=== PATIENT | male | born 1945 | race Caucasian/White ===

== ENCOUNTER 2016-12-22 03:17 | Emergency (ER) | payer OTHER ==
[~2016-12-22] VITALS: Ht 167.6 cm; Wt 56.7 kg
[~2016-12-22 03:17] MED LIST: BUDE0.5A NEB; CIPR500T94 PO; DOCU-27 PO; FLUT9.9S NS; HYDR-2678 PO; IPRA3AMP NEB; METH4TAB7 PO; MONT10TA6 PO; OMEP20CA9 PO; PRED-220 PO; PROAIR HFA8.5 GM IH; TRAM50TA PO
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
[2016-12-22 03:50] VITALS: BP 168/83
[2016-12-22] MEDS ORDERED: HYDR-971 PO (03:54)
[2016-12-22] MEDS ORDERED: PROAIR HFA8.5 GM INH (03:54)
[2016-12-22] MEDS ORDERED: IBUPROFEN 800 MG TABLET. PO ONE (04:00)
[2016-12-22] MEDS ORDERED: HYDROcodone/APAP 5/325MG 1 TAB TABLET PO ONE (04:00)
--- NOTE | 2016-12-22 07:37 | RAD ---
Indication right rib pain. A single view of the chest was obtained and is compared to an examination 10/13/2016. Multiple films targeted to right ribs were also obtained. There are chronic changes in the chest compatible with emphysema and/or fibrosis. There is no congestive heart failure focal infiltrate significant pleural fluid collection or pneumothorax. Pulmonary vasculature is normal. Films targeted to right ribs appear unremarkable. IMPRESSION: No acute finding in the chest. Normal plain films right ribs
--- NOTE | 2016-12-22 07:40 | RAD ---
Indication shoulder pain for several weeks. 2 AP views of the left shoulder and Y view were obtained. No bony abnormality is seen
== END 2016-12-22 04:30 | disposition home or self-care (01) ==
LOC: ER 03:17
DX: M94.0 Chondrocostal junction syndrome [Tietze] (principal); S46.912A Strain of unspecified muscle, fascia and tendon at shoulder and upper arm level, left arm, initial encounter; G89.29 Other chronic pain; G20 Parkinson's disease; J43.9 Emphysema, unspecified; Z98.890 Other specified postprocedural states; X58.XXXA Exposure to other specified factors, initial encounter; Y93.89 Activity, other specified; Y99.8 Other external cause status; Y92.89 Other specified places as the place of occurrence of the external cause
CPT/HCPCS: 71101; 73030; 99284

== ENCOUNTER 2017-01-06 15:26 | Inpatient (IN) | payer OTHER ==
[~2017-01-06] VITALS: Ht 165.1 cm; Wt 49.5 kg
[~2017-01-06 15:26] MED LIST changes: +HYDR-971 PO; +PROAIR HFA8.5 GM INH
[2017-01-06] MEDS ORDERED: methylPREDNISolone SOD SUCC PF 125 MG/2 ML VIAL. IV ONE (15:30)
[2017-01-06] MEDS ORDERED: IPRATRPIUM/ALBUTEROL 0.5/2.5MG 3 ML NEBU. NEB ONE ×2 (15:30)
[2017-01-06 15:51] LABS: BASO # 0.1 x10^3/uL (0.0-0.2); BASO % 1 % (0-3); EOS % 0 % (0-3); HEMATOCRIT 37.3 % (39.0-53.0); HEMOGLOBIN 12.4 g/dL (13.0-17.5); LYMPH # 1.2 x10^3/uL (1.0-4.8); LYMPH % 10 % (24-48); MEAN CORPUSCULAR HEMOGLOBIN 28 pg (25-35); MEAN CORPUSCULAR HGB CONC 33 g/dL (31-37); MEAN CORPUSCULAR VOLUME 84 fL (79-100); MONO % 5 % (0-9); NEUT % 85 % (31-73); PLATELET COUNT 562 x10^3/uL (140-400); RED BLOOD COUNT 4.44 x10^6/uL (4.30-5.70); WHITE BLOOD COUNT 12.6 x10^3/uL (4.0-11.0)
--- NOTE | 2017-01-06 16:01 | EKG ---
[facility] [address] [place] [address] Test Date: 2017-01-06 Test Time: 15:32:19 Pat Name: JUAN JAUREGUI Department: Room: Gender: M Flight Line Mechanic: : 1945 Requested By: CHELSEA VALENTINO Order Number: [id number] Reading MD: Shon Rosario Measurements Intervals [place] Rate: 66 P: 74 HI: 172 QRS: 46 QRSD: 104 T: 67 QT: 420 QTc: 442 Interpretive Statements SINUS RHYTHM Electronically Signed On 01-11-2017 14:01:33 CDT by Shon Rosario
[2017-01-06 16:07] LABS: CALCIUM 9.1 mg/dL (8.5-10.1); CREATININE 0.9 mg/dL (0.7-1.3); GFR 83.4; POTASSIUM 3.9 mmol/L (3.5-5.1)
[2017-01-06 16:13] LABS: ALBUMIN/GLOBULIN RATIO 0.8 (1.0-1.7); TOTAL BILIRUBIN 0.5 mg/dL (0.2-1.0); TOTAL PROTEIN 6.7 g/dL (6.4-8.2)
--- NOTE | 2017-01-06 16:15 | RAD ---
Chest, 2 views, 01/06/2017: History: Cough, shortness of breath Comparison is made to a study from 12/22/2016. There is emphysema with hyperexpansion the lungs. The heart size is normal. There is calcific plaquing of the aorta. There are scattered parenchymal scars. There is a new small parenchymal opacity laterally in the right lower chest suggesting a focus of atelectasis or pneumonia. No pleural fluid is seen. The bony structures are demineralized. Several thoracic vertebral compression fractures are again noted. IMPRESSION: 1. Emphysema with parenchymal scarring. 2. Minimal right basilar atelectasis/infiltrate.
--- NOTE | 2017-01-06 16:55 | PHYS DOC ---
Past Medical History Past Medical History: Asthma Additional Past Medical Histor: emphysema, chronic back pain, PAD, Parkinsons Past Surgical History: No Surgical History Additional Past Surgical Histo: L shoulder Alcohol Use: None Drug Use: None Adult General Chief Complaint Chief Complaint: SHORTNESS OF BREATH HPI HPI Patient is a 71 year old male with a history of COPD brought by EMS from Dr. Sykes's office with respiratory distress. I was called by the nurse practitioner at Dr. Sykes's office. The patient presented today with the complaint of short of air, cough for 15 days, they found him to have sats in the 70s on room air. They put him on 2 L, sats came up to the high 70s, turned it up to 4 L, his sat came up to the 90s. They gave him a neb treatment at the office and called EMS to transport the patient. The patient tells me he does not have home oxygen. He does have a nebulizer at home, that he has not had albuterol for it for at least a year. He cannot afford it. The patient does smoke. He has a history of COPD. He has a history of pneumonia. PCP Dr. Sykes Review of Systems Review of Systems Constitutional: Denies fever or chills [] Eyes: Denies change in visual acuity, redness, or eye pain [] HENT: Denies nasal congestion or sore throat [] Respiratory: As in history of present illness Cardiovascular: Denies chest pain GI: Denies abdominal pain, nausea, vomiting, bloody stools or diarrhea [] : Denies dysuria or hematuria [] Musculoskeletal: He has chronic back pain and takes tramadol for that. Integument: Denies rash or skin lesions [] Neurologic: Denies headache, focal weakness or sensory changes [] Current Medications Current Medications Current Medications Medications (Trade) Dose Ordered Sig/[facility]oc[facility] Start Time Stop Time Status Last Admin Dose Admin Albuterol/ Ipratropium (Duoneb) 3 ml 1X ONCE 01/06/17 15:30 01/06/17 15:36 DC 01/06/17 16:17 3 ML Methylprednisolone Sodium Succinate (SOLU-Medrol 125MG VIAL) 60 mg 1X ONCE 01/06/17 15:30 01/06/17 15:36 DC 01/06/17 16:00 60 MG Allergies Allergies Allergies Coded Allergies Type Severity Reaction Last Updated Verified No Known Drug Allergies 11/07/14 No Physical Exam Physical Exam Constitutional: Cachectic, unkempt appearing 71-year-old man who is alert and mentating normally and does not appear dyspneic, pulse ox on room air mid 90s on arrival HENT: Normocephalic, atraumatic, bilateral external ears normal, nose normal. [ ] Eyes: conjunctiva normal, no discharge. [] Neck: Normal range of motion, no stridor. [] Cardiovascular:Heart rate regular rhythm, no murmur [] Lungs & Thorax: Breath sounds present bilaterally, diminished throughout, prolonged expiratory phase throughout, scattered expiratory wheezes. Decreased breath sounds in the left base posteriorly. No rhonchi or consolidative changes. Abdomen: Bowel sounds normal, soft, no tenderness, no masses, no pulsatile masses. [] Skin: Warm, dry, no erythema, no rash. [] Extremities: No tenderness, no cyanosis, no clubbing, ROM intact, no edema. [] Neurologic: Alert and oriented X 3, normal motor function, normal sensory function, no focal deficits noted. [] Current Patient Data Vital Signs Vital Signs Date Time Temp Pulse Resp B/P (MAP) Pulse Ox O2 Delivery O2 Flow Rate FiO2 01/06/17 16:26 69 30 172/73 (106) 94 Room Air 01/06/17 15:29 97.6 97.6 Lab Values Laboratory Tests Test 01/06/17 15:40 White Blood Count 12.6 x10^3/uL (4.0-11.0) H Red Blood Count 4.44 x10^6/uL (4.30-5.70) Hemoglobin 12.4 g/dL (13.0-17.5) L Hematocrit 37.3 % (39.0-53.0) L Mean Corpuscular Volume 84 fL (79-100) Mean Corpuscular Hemoglobin 28 pg (25-35) Mean Corpuscular Hemoglobin Concent 33 g/dL (31-37) Red Cell Distribution Width 17.0 % (11.5-14.5) H Platelet Count 562 x10^3/uL (140-400) H Neutrophils (%) (Auto) 85 % (31-73) H Lymphocytes (%) (Auto) 10 % (24-48) L Monocytes (%) (Auto) 5 % (0-9) Eosinophils (%) (Auto) 0 % (0-3) Basophils (%) (Auto) 1 % (0-3) Neutrophils # (Auto) 10.7 x10^3uL (1.8-7.7) H Lymphocytes # (Auto) 1.2 x10^3/uL (1.0-4.8) Monocytes # (Auto) 0.6 x10^3/uL (0.0-1.1) Eosinophils # (Auto) 0.0 x10^3/uL (0.0-0.7) Basophils # (Auto) 0.1 x10^3/uL (0.0-0.2) Sodium Level 140 mmol/L (136-145) Potassium Level 3.9 mmol/L (3.5-5.1) Chloride Level 104 mmol/L (98-107) Carbon Dioxide Level 32 mmol/L (21-32) Anion Gap 4 (6-14) L Blood Urea Nitrogen 13 mg/dL (8-26) Creatinine 0.9 mg/dL (0.7-1.3) Estimated GFR (Cockcroft-Gault) 83.4 BUN/Creatinine Ratio 14 (6-20) Glucose Level 127 mg/dL (70-99) H Calcium Level 9.1 mg/dL (8.5-10.1) Total Bilirubin 0.5 mg/dL (0.2-1.0) Aspartate Amino Transferase (AST) 19 U/L (15-37) Alanine Aminotransferase (ALT) 18 U/L (16-63) Alkaline Phosphatase 74 U/L (46-116) Troponin I Quantitative < 0.017 ng/mL (0.000-0.055) BA-Gvw-Y-Type Natriuretic Peptide 547 pg/mL (0-124) H Total Protein 6.7 g/dL (6.4-8.2) Albumin 3.0 g/dL (3.4-5.0) L Albumin/Globulin Ratio 0.8 (1.0-1.7) L Laboratory Tests 01/06/17 15:40 Laboratory Tests 01/06/17 15:40 EKG EKG 12-lead EKG read by me. Sinus rhythm. Heart rate 66. There are no acute ST or T wave changes indicative of ischemia or infarction. No STEMI. 1532 [] Radiology/Procedures Radiology/Procedures Two-view chest x-ray read by the radiologist. Emphysema with parenchymal scarring. Minimal right basilar atelectasis or infiltrate. [] Course & Med Decision Making Course & Med Decision Making Pertinent Labs and Imaging studies reviewed. (See chart for details) 71-year-old male brought by EMS from Dr. Sykes's office after he was found to be hypoxic when he visited the office with shortness of air. Patient had a neb treatment prior to transport and was given a second neb treatment here. He was also given IV steroids. 1640 Rechecked patient. Pulse ox on room air 93% at rest, goes down to 92% when I talked to him and he talks. He does not appear overtly dyspneic. He complains of this time that he is hungry and also complains that his legs are twitching and he needs a dose of this pain medication. He did not know what that is but review of records reveals it appears to be tramadol. I discussed with the patient that I believe he should be hospitalized for frequent nebulized albuterol treatments, likely would benefit from IV steroids and IV antibiotics. Patient is agreeable to that plan. I discussed the case with Dr. Sykes, PCP, who will admit the patient. I wrote bridge orders. [] Dragon Disclaimer Dragon Disclaimer This electronic medical record was generated, in whole or in part, using a voice recognition dictation system. Departure Departure Impression: Primary Impression: COPD exacerbation Additional Impression: Pneumonia Disposition: ADMITTED INPATIENT Admitting Physician: Madeline Sykes Condition: STABLE Referrals: MADELINE SYKES MD (PCP) Problem Qualifiers CHELSEA VALENTINO MD January 06, 2017 16:55
[2017-01-06] MEDS ORDERED: traMADol 50 MG TABLET PO ONE (17:00)
--- NOTE | 2017-01-06 17:28 | ACF ---
Admission Forms Criteria COPD Clinical Indications for Admission to Inpatient Care (Place 'X' for any and all applicable criteria): Admission is indicated for ANY ONE of the following (1)(2)(3): [X]I. Acute exacerbation by high-risk comorbidity (e.g., pneumonia, dysrhythmia, heart failure, pleural effusion, pneumothorax) or severe underlying COPD (e.g., steroid dependent) [ ]II. Inpatient admission required rather than observation care (see Chronic Obstructive Pulmonary Disease: Observation Care) because of ANY ONE of the following: [ ]a) New or pre-existing signs or symptoms of COPD (eg, dyspnea or Tachypnea at rest or with minimal activity) that persist despite outpatient and observation care treatment [ ]b) New-onset hypoxemia (room air SaO2 less than 90%, PO2 less than 60 mm Hg (8.0 kPa)) that persists despite outpatient and observation care treatment [ ]c) Worsening of pre-existing hypoxemia (eg, new or increased requirement for supplemental oxygen to maintain oxygenation at baseline level) that persists despite outpatient and observation care treatment, with oxygen treatment needs performable only in acute inpatient setting [ ]d) Hypercarbia (PCO2 greater than 40 mm Hg (5.3 kPa))-induced respiratory acidosis (pH less than 7.35) that persists despite outpatient and observation care treatment [ ]e) Supplemental oxygen or respiratory treatments for over 24 hours that are performable only in acute inpatient setting [ ]f) Chest tube placement with active evacuation (e.g., suction, drainage) (5) [ ]g) Other condition, treatment or monitoring requiring inpatient admission [ ]III. Planned invasive surgical or diagnostic procedures requiring acute- care hospitalization [ ]IV. Acute respiratory failure (e.g., uncompensated hypercarbia, severe hypoxemia) [ ]V. Severe comorbid condition (e.g., severe steroid myopathy, acute vertebral fracture) that has acutely worsened pulmonary function [ ]. Confusion state, lethargy, obtundation, stupor or coma Extended stay beyond goal length of stay may be needed for (31)(32): [ ]a ) Respiratory Failure. [ ]b) Severe or persisting hypoxemia or hypercarbia [ ]c) Severe or persistent dyspnea [ ]d) Comorbidities (e.g. chronic heart failure, atrial fibrillation with rapid response, pneumonia) [ ]e) Malnutrition The original [facility] content created by [facility] (formerly [facility]) has been revised. The portions of the content which have been revised are identified through the use of italic text or in bold, and [facility] has neither reviewed nor approved the modified material. All other unmodified content is copyright [facility]. Please see references footnoted in the original [facility] edition 2016 Admission Criteria Met?: Yes NANCY AGUILAR January 06, 2017 17:28
[2017-01-06 19:00] VITALS: BP 139/75
[2017-01-06] MEDS: IPRATRPIUM/ALBUTEROL 0.5/2.5MG 3 ML NEBU. NEB SCH (20:55)
[2017-01-06] MEDS: traMADol 50 MG TABLET PO PRN (21:26)
[2017-01-06 22:48] VITALS: BP 117/66
[2017-01-07] MEDS: traMADol 50 MG TABLET PO PRN ×2 (03:45→20:37)
[2017-01-07 05:41] LABS: HEMATOCRIT 33.1 % (39.0-53.0); HEMOGLOBIN 11.2 g/dL (13.0-17.5); RED BLOOD COUNT 4.02 x10^6/uL (4.30-5.70); RED CELL DISTRIBUTION WIDTH 16.2 % (11.5-14.5)
[2017-01-07 05:55] LABS: ALBUMIN 2.8 g/dL (3.4-5.0); ALBUMIN/GLOBULIN RATIO 0.9 (1.0-1.7); CREATININE 0.9 mg/dL (0.7-1.3); GFR 83.4; POTASSIUM 4.6 mmol/L (3.5-5.1); TOTAL BILIRUBIN 0.3 mg/dL (0.2-1.0); TOTAL PROTEIN 5.8 g/dL (6.4-8.2)
[2017-01-07 07:00] VITALS: BP 133/79
[2017-01-07] MEDS: IPRATRPIUM/ALBUTEROL 0.5/2.5MG 3 ML NEBU. NEB SCH ×5 (07:39→19:31)
[2017-01-07] MEDS ORDERED: ALBUTEROL SULFATE 2.5 MG/3 ML NEBU. NEB PRN (07:45)
--- NOTE | 2017-01-07 08:09 | PDOC1 ---
ROBBI LINCOLN CLINICAL CARE MANAGER 01/07/17 0809: HISTORY AND PHYSICAL Chief Complaint Chief Complaint This 71 year old male has been admitted with a chief complaint of shortness of breath. He presented to the office yesterday with cough productive yellow sputum for approximately 15 days. He noted progressive worsening shortness of breath without fever or chills. He also noted wheezing intermittently. During VS check in his Sat was noted to be 70%, O2 2L NC was applied. His Sat improved to 73%. A Duoneb treatment was administered and EMS was called. At the time of transport his Sat had improved to 98-99% and his shortness of breath had slightly improved. A CXR in ED revealed R LLL infiltrate and his WBC was 12.6. He was given Solumedrol 60mg IV, duoneb treatment x2, and Levaquin 750 IV x 1. He is admitted for further evaluation and treatment. . Problem List Problems Medical Problems: (1) COPD exacerbation Status: Acute (2) Pneumonia Status: Acute Past Medical History Cardiovascular: Other (PAD) Pulmonary: COPD (emphysema ), Other Heme/Onc: Anemia NOS, B12 deficiency Musculoskeletal: low back pain (LBP with radicular pain RLE chronic ), Other ( cervical radiculopathy ) Endocrine: Other (Vitamin D def) Past Surgical History PSH L shoulder surgery Past Family History Family History: Other (MOther TB ) Past Social History PSH lives alone. + tobacco, negative ETOH or illicit drug use. Review of Symptoms Review of Symptoms A 14 point ROS was completed with the following noted as positive: per HPI Other systems reviewed and negative. Medications Medications reviewed and reconciled for admission Allergy Allergies Coded Allergies Type Severity Reaction Last Updated Verified No Known Drug Allergies 11/07/14 No Physical Exam Physical Exam General appearance - alert,well appearing, and in no distress and oriented to person, place, and time Mental Status - alert, oriented to person, place, and time, affect appropriate to mood Head - normal Chest - clear to auscultation, no wheezes, rales or rhonchi, symmetric air entry Heart - S1 and S2 normal Abdomen - soft, nontender, nondistended, no masses or organomegaly Neurological - alert and oriented Musculoskeletal - no muscular tenderness noted Extremities - no pedal edema Skin - warm and dry VTE Prophylaxis Ordered VTE Prophylaxis Devices: No VTE Pharmacological Prophylaxi: No Assessment Labs Laboratory Tests Test 01/06/17 15:40 01/07/17 05:15 White Blood Count 12.6 x10^3/uL (4.0-11.0) 12.0 x10^3/uL (4.0-11.0) Red Blood Count 4.44 x10^6/uL (4.30-5.70) 4.02 x10^6/uL (4.30-5.70) Hemoglobin 12.4 g/dL (13.0-17.5) 11.2 g/dL (13.0-17.5) Hematocrit 37.3 % (39.0-53.0) 33.1 % (39.0-53.0) Mean Corpuscular Volume 84 fL (79-100) 82 fL (79-100) Mean Corpuscular Hemoglobin 28 pg (25-35) 28 pg (25-35) Mean Corpuscular Hemoglobin Concent 33 g/dL (31-37) 34 g/dL (31-37) Red Cell Distribution Width 17.0 % (11.5-14.5) 16.2 % (11.5-14.5) Platelet Count 562 x10^3/uL (140-400) 541 x10^3/uL (140-400) Neutrophils (%) (Auto) 85 % (31-73) Lymphocytes (%) (Auto) 10 % (24-48) Monocytes (%) (Auto) 5 % (0-9) Eosinophils (%) (Auto) 0 % (0-3) Basophils (%) (Auto) 1 % (0-3) Neutrophils # (Auto) 10.7 x10^3uL (1.8-7.7) Lymphocytes # (Auto) 1.2 x10^3/uL (1.0-4.8) Monocytes # (Auto) 0.6 x10^3/uL (0.0-1.1) Eosinophils # (Auto) 0.0 x10^3/uL (0.0-0.7) Basophils # (Auto) 0.1 x10^3/uL (0.0-0.2) Sodium Level 140 mmol/L (136-145) 138 mmol/L (136-145) Potassium Level 3.9 mmol/L (3.5-5.1) 4.6 mmol/L (3.5-5.1) Chloride Level 104 mmol/L (98-107) 102 mmol/L (98-107) Carbon Dioxide Level 32 mmol/L (21-32) 29 mmol/L (21-32) Anion Gap 4 (6-14) 7 (6-14) Blood Urea Nitrogen 13 mg/dL (8-26) 19 mg/dL (8-26) Creatinine 0.9 mg/dL (0.7-1.3) 0.9 mg/dL (0.7-1.3) Estimated GFR (Cockcroft-Gault) 83.4 83.4 BUN/Creatinine Ratio 14 (6-20) 21 (6-20) Glucose Level 127 mg/dL (70-99) 106 mg/dL (70-99) Calcium Level 9.1 mg/dL (8.5-10.1) 9.0 mg/dL (8.5-10.1) Total Bilirubin 0.5 mg/dL (0.2-1.0) 0.3 mg/dL (0.2-1.0) Aspartate Amino Transf (AST/SGOT) 19 U/L (15-37) 15 U/L (15-37) Alanine Aminotransferase (ALT/SGPT) 18 U/L (16-63) 17 U/L (16-63) Alkaline Phosphatase 74 U/L (46-116) 73 U/L (46-116) Troponin I Quantitative < 0.017 ng/mL (0.000-0.055) EY-Ifx-O-Type Natriuretic Peptide 547 pg/mL (0-124) Total Protein 6.7 g/dL (6.4-8.2) 5.8 g/dL (6.4-8.2) Albumin 3.0 g/dL (3.4-5.0) 2.8 g/dL (3.4-5.0) Albumin/Globulin Ratio 0.8 (1.0-1.7) 0.9 (1.0-1.7) Laboratory Tests Test 01/06/17 15:40 01/07/17 05:15 White Blood Count 12.6 x10^3/uL (4.0-11.0) 12.0 x10^3/uL (4.0-11.0) Red Blood Count 4.44 x10^6/uL (4.30-5.70) 4.02 x10^6/uL (4.30-5.70) Hemoglobin 12.4 g/dL (13.0-17.5) 11.2 g/dL (13.0-17.5) Hematocrit 37.3 % (39.0-53.0) 33.1 % (39.0-53.0) Mean Corpuscular Volume 84 fL (79-100) 82 fL (79-100) Mean Corpuscular Hemoglobin 28 pg (25-35) 28 pg (25-35) Mean Corpuscular Hemoglobin Concent 33 g/dL (31-37) 34 g/dL (31-37) Red Cell Distribution Width 17.0 % (11.5-14.5) 16.2 % (11.5-14.5) Platelet Count 562 x10^3/uL (140-400) 541 x10^3/uL (140-400) Neutrophils (%) (Auto) 85 % (31-73) Lymphocytes (%) (Auto) 10 % (24-48) Monocytes (%) (Auto) 5 % (0-9) Eosinophils (%) (Auto) 0 % (0-3) Basophils (%) (Auto) 1 % (0-3) Neutrophils # (Auto) 10.7 x10^3uL (1.8-7.7) Lymphocytes # (Auto) 1.2 x10^3/uL (1.0-4.8) Monocytes # (Auto) 0.6 x10^3/uL (0.0-1.1) Eosinophils # (Auto) 0.0 x10^3/uL (0.0-0.7) Basophils # (Auto) 0.1 x10^3/uL (0.0-0.2) Sodium Level 140 mmol/L (136-145) 138 mmol/L (136-145) Potassium Level 3.9 mmol/L (3.5-5.1) 4.6 mmol/L (3.5-5.1) Chloride Level 104 mmol/L (98-107) 102 mmol/L (98-107) Carbon Dioxide Level 32 mmol/L (21-32) 29 mmol/L (21-32) Anion Gap 4 (6-14) 7 (6-14) Blood Urea Nitrogen 13 mg/dL (8-26) 19 mg/dL (8-26) Creatinine 0.9 mg/dL (0.7-1.3) 0.9 mg/dL (0.7-1.3) Estimated GFR (Cockcroft-Gault) 83.4 83.4 BUN/Creatinine Ratio 14 (6-20) 21 (6-20) Glucose Level 127 mg/dL (70-99) 106 mg/dL (70-99) Calcium Level 9.1 mg/dL (8.5-10.1) 9.0 mg/dL (8.5-10.1) Total Bilirubin 0.5 mg/dL (0.2-1.0) 0.3 mg/dL (0.2-1.0) Aspartate Amino Transf (AST/SGOT) 19 U/L (15-37) 15 U/L (15-37) Alanine Aminotransferase (ALT/SGPT) 18 U/L (16-63) 17 U/L (16-63) Alkaline Phosphatase 74 U/L (46-116) 73 U/L (46-116) Troponin I Quantitative < 0.017 ng/mL (0.000-0.055) VH-Bgm-H-Type Natriuretic Peptide 547 pg/mL (0-124) Total Protein 6.7 g/dL (6.4-8.2) 5.8 g/dL (6.4-8.2) Albumin 3.0 g/dL (3.4-5.0) 2.8 g/dL (3.4-5.0) Albumin/Globulin Ratio 0.8 (1.0-1.7) 0.9 (1.0-1.7) Plan Plan IMPRESSION: 1. acute hypoxic respiratory failure 2. pneumonia RLL suspect grm neg grm + SIRS, not sepsis 3. AECOPD 4. wound R knee painful 5. pulmonary emphysema 6. moderate chronic PCL malnutrition 7. chronic low back pain with radicular pain RLE outpatient chronic pain management 8. cervical radiculopathy outpatient chronic pain management PLAN: respiratory failure/pneumonia/AECOPD Levaquin 750mbg IV x 1 ED 01/06/17 Begin Rocephin Zithromax IV daily grm- grm+ coverage nebulizer treatment duoneb/busesonide mucinex smoking cessation Solu Med 60mg IV ED Prednisone 40mg po daily begin 01/07 supplement O2 as needed Admit WBC 12.6 01/07 12.0 chronic pain management Tramadol 50mg prn as per OP wound R knee Bactroban ointment bid malnutrition monitor intake chronic anemia B12 def continue oral B12 Admit 12.4 01/07 11.2-rehydration DVT/GI prophylaxis low risk ambulation PPI For more details regarding further plans, please refer to the orders. MADELINE SYKES MD 01/07/17 1046: HISTORY AND PHYSICAL Plan Plan The patient was seen and examined by me. Chart reviewed and plan of care formulated. Discussed with, reviewed and agree with PIE CRUST MIXER's notes, plan of care and orders with modifications as necessary. For more details regarding further plans, please refer to the orders. ROBBI LINCOLN APRN January 07, 2017 08:09 MADELINE SYKES MD January 07, 2017 10:46
[2017-01-07] MEDS ORDERED: NON FORMULARY ITEM (Albuterol Sulfate (Proair Hfa Inhaler) 2 PUFF) IH SCH (08:30)
[2017-01-07] MEDS ORDERED: NON FORMULARY ITEM (Albuterol Sulfate (Proair Hfa Inhaler) 1 PUFF) INH PRN (08:30)
[2017-01-07] MEDS ORDERED: CETI10TA22 PO (08:37)
[2017-01-07] MEDS ORDERED: BUDE10.2 IH (08:37)
[2017-01-07] MEDS ORDERED: CHOL10003 PO (08:38)
[2017-01-07] MEDS ORDERED: CYAN10005 PO (08:39)
[2017-01-07] MEDS: CYANOCOBALAMIN (VITAMIN B-12) 1,000 MCG TABLET. PO SCH (09:33)
[2017-01-07] MEDS: PANTOPRAZOLE 40 MG TABLET.DR. PO SCH (09:33)
[2017-01-07] MEDS: CHOLECALCIFEROL (VITAMIN D3) 1,000 UNIT TABLET PO SCH (09:33)
[2017-01-07] MEDS: MONTELUKAST SODIUM 10 MG TABLET. PO SCH (09:33)
[2017-01-07] MEDS: MUPIROCIN 2 % NASAL OINTMENT 22GM TUBE. NS SCH ×2 (09:33→20:37)
[2017-01-07] MEDS: FLUTICASONE 50MCG/NASAL SPRAY 16GM BOTTLE. NS SCH (09:42)
[2017-01-07] MEDS: AZITHROMYCIN 500 MG in IV NORMAL SALINE 250ML 250 ML IV SCH (10:22)
[2017-01-07] MEDS: predniSONE 10 MG TABLET PO SCH (10:22)
[2017-01-07 11:00] VITALS: BP 130/75
[2017-01-07] MEDS: BUDESONIDE 0.5 MG/2 ML NEBU. NEB SCH ×2 (11:09→19:31)
[2017-01-07] MEDS ORDERED: IPRATRPIUM/ALBUTEROL 0.5/2.5MG 3 ML NEBU. NEB SCH (12:00)
[2017-01-07 15:00] VITALS: BP 128/80
[2017-01-07 19:00] VITALS: BP 141/70
[2017-01-07] MEDS ORDERED: MONTELUKAST SODIUM 10 MG TABLET. PO SCH (21:00)
[2017-01-07 22:46] VITALS: BP 119/64
[2017-01-08 03:00] VITALS: BP 123/73
[2017-01-08] MEDS: traMADol 50 MG TABLET PO PRN ×3 (04:06→23:21)
[2017-01-08 05:52] LABS: BASO % 0 % (0-3); EOS % 0 % (0-3); HEMATOCRIT 35.4 % (39.0-53.0); HEMOGLOBIN 11.5 g/dL (13.0-17.5); LYMPH # 1.6 x10^3/uL (1.0-4.8); LYMPH % 11 % (24-48); MEAN CORPUSCULAR HEMOGLOBIN 28 pg (25-35); MEAN CORPUSCULAR HGB CONC 32 g/dL (31-37); MEAN CORPUSCULAR VOLUME 85 fL (79-100); MONO % 5 % (0-9); NEUT % 83 % (31-73); PLATELET COUNT 487 x10^3/uL (140-400); RED BLOOD COUNT 4.15 x10^6/uL (4.30-5.70); RED CELL DISTRIBUTION WIDTH 16.5 % (11.5-14.5); WHITE BLOOD COUNT 14.1 x10^3/uL (4.0-11.0)
[2017-01-08 06:06] LABS: CREATININE 0.9 mg/dL (0.7-1.3); GFR 83.4; POTASSIUM 4.5 mmol/L (3.5-5.1)
[2017-01-08] MEDS: PANTOPRAZOLE 40 MG TABLET.DR. PO SCH (06:37)
[2017-01-08 07:00] VITALS: BP 114/76
[2017-01-08] MEDS: BUDESONIDE 0.5 MG/2 ML NEBU. NEB SCH ×2 (07:40→19:19)
[2017-01-08] MEDS: IPRATRPIUM/ALBUTEROL 0.5/2.5MG 3 ML NEBU. NEB SCH ×4 (07:41→19:19)
--- NOTE | 2017-01-08 08:13 | PDOC ---
SALAZARROBBI JUVENILE OFFICER 01/08/17 0813: IM PROGRESS NOTES- Subjective Subjective feeling better, shortness of air better Objective Objective alert, no distress Vitals Vital Signs Date Time Temp Pulse Resp B/P (MAP) Pulse Ox O2 Delivery O2 Flow Rate FiO2 01/08/17 07:41 96 Room Air 01/08/17 04:06 18 01/08/17 03:00 80 123/73 (90) 01/07/17 22:46 97.9 97.9 Input & Output Intake and Output 01/08/17 07:00 Intake Total 1080 ml Output Total 2350 ml Balance -1270 ml Intake Oral 1080 ml Output Urine Total 2350 ml Physical Exam Physical Exam General appearance - alert, chronically ill appearing, Mental Status - alert, oriented to person, place, and time, affect appropriate to mood Head - normal Chest - wheezing ant post Heart - S1 and S2 normal Abdomen - soft, nontender, nondistended, BS+ Neurological - alert and oriented Musculoskeletal - no muscular tenderness noted Extremities - no pedal edema Skin - warm and dry, small closed puncture like wound L knee Labs Laboratory Tests Test 01/06/17 15:40 01/07/17 05:15 01/08/17 05:30 White Blood Count 12.6 x10^3/uL (4.0-11.0) 12.0 x10^3/uL (4.0-11.0) 14.1 x10^3/uL (4.0-11.0) Red Blood Count 4.44 x10^6/uL (4.30-5.70) 4.02 x10^6/uL (4.30-5.70) 4.15 x10^6/uL (4.30-5.70) Hemoglobin 12.4 g/dL (13.0-17.5) 11.2 g/dL (13.0-17.5) 11.5 g/dL (13.0-17.5) Hematocrit 37.3 % (39.0-53.0) 33.1 % (39.0-53.0) 35.4 % (39.0-53.0) Mean Corpuscular Volume 84 fL (79-100) 82 fL (79-100) 85 fL (79-100) Mean Corpuscular Hemoglobin 28 pg (25-35) 28 pg (25-35) 28 pg (25-35) Mean Corpuscular Hemoglobin Concent 33 g/dL (31-37) 34 g/dL (31-37) 32 g/dL (31-37) Red Cell Distribution Width 17.0 % (11.5-14.5) 16.2 % (11.5-14.5) 16.5 % (11.5-14.5) Platelet Count 562 x10^3/uL (140-400) 541 x10^3/uL (140-400) 487 x10^3/uL (140-400) Neutrophils (%) (Auto) 85 % (31-73) 83 % (31-73) Lymphocytes (%) (Auto) 10 % (24-48) 11 % (24-48) Monocytes (%) (Auto) 5 % (0-9) 5 % (0-9) Eosinophils (%) (Auto) 0 % (0-3) 0 % (0-3) Basophils (%) (Auto) 1 % (0-3) 0 % (0-3) Neutrophils # (Auto) 10.7 x10^3uL (1.8-7.7) 11.7 x10^3uL (1.8-7.7) Lymphocytes # (Auto) 1.2 x10^3/uL (1.0-4.8) 1.6 x10^3/uL (1.0-4.8) Monocytes # (Auto) 0.6 x10^3/uL (0.0-1.1) 0.7 x10^3/uL (0.0-1.1) Eosinophils # (Auto) 0.0 x10^3/uL (0.0-0.7) 0.0 x10^3/uL (0.0-0.7) Basophils # (Auto) 0.1 x10^3/uL (0.0-0.2) 0.0 x10^3/uL (0.0-0.2) Sodium Level 140 mmol/L (136-145) 138 mmol/L (136-145) 140 mmol/L (136-145) Potassium Level 3.9 mmol/L (3.5-5.1) 4.6 mmol/L (3.5-5.1) 4.5 mmol/L (3.5-5.1) Chloride Level 104 mmol/L (98-107) 102 mmol/L (98-107) 104 mmol/L (98-107) Carbon Dioxide Level 32 mmol/L (21-32) 29 mmol/L (21-32) 28 mmol/L (21-32) Anion Gap 4 (6-14) 7 (6-14) 8 (6-14) Blood Urea Nitrogen 13 mg/dL (8-26) 19 mg/dL (8-26) 18 mg/dL (8-26) Creatinine 0.9 mg/dL (0.7-1.3) 0.9 mg/dL (0.7-1.3) 0.9 mg/dL (0.7-1.3) Estimated GFR (Cockcroft-Gault) 83.4 83.4 83.4 BUN/Creatinine Ratio 14 (6-20) 21 (6-20) Glucose Level 127 mg/dL (70-99) 106 mg/dL (70-99) 110 mg/dL (70-99) Calcium Level 9.1 mg/dL (8.5-10.1) 9.0 mg/dL (8.5-10.1) 9.0 mg/dL (8.5-10.1) Total Bilirubin 0.5 mg/dL (0.2-1.0) 0.3 mg/dL (0.2-1.0) Aspartate Amino Transf (AST/SGOT) 19 U/L (15-37) 15 U/L (15-37) Alanine Aminotransferase (ALT/SGPT) 18 U/L (16-63) 17 U/L (16-63) Alkaline Phosphatase 74 U/L (46-116) 73 U/L (46-116) Troponin I Quantitative < 0.017 ng/mL (0.000-0.055) WD-Vyx-E-Type Natriuretic Peptide 547 pg/mL (0-124) Total Protein 6.7 g/dL (6.4-8.2) 5.8 g/dL (6.4-8.2) Albumin 3.0 g/dL (3.4-5.0) 2.8 g/dL (3.4-5.0) Albumin/Globulin Ratio 0.8 (1.0-1.7) 0.9 (1.0-1.7) Laboratory Tests Test 01/08/17 05:30 White Blood Count 14.1 x10^3/uL (4.0-11.0) Red Blood Count 4.15 x10^6/uL (4.30-5.70) Hemoglobin 11.5 g/dL (13.0-17.5) Hematocrit 35.4 % (39.0-53.0) Mean Corpuscular Volume 85 fL (79-100) Mean Corpuscular Hemoglobin 28 pg (25-35) Mean Corpuscular Hemoglobin Concent 32 g/dL (31-37) Red Cell Distribution Width 16.5 % (11.5-14.5) Platelet Count 487 x10^3/uL (140-400) Neutrophils (%) (Auto) 83 % (31-73) Lymphocytes (%) (Auto) 11 % (24-48) Monocytes (%) (Auto) 5 % (0-9) Eosinophils (%) (Auto) 0 % (0-3) Basophils (%) (Auto) 0 % (0-3) Neutrophils # (Auto) 11.7 x10^3uL (1.8-7.7) Lymphocytes # (Auto) 1.6 x10^3/uL (1.0-4.8) Monocytes # (Auto) 0.7 x10^3/uL (0.0-1.1) Eosinophils # (Auto) 0.0 x10^3/uL (0.0-0.7) Basophils # (Auto) 0.0 x10^3/uL (0.0-0.2) Sodium Level 140 mmol/L (136-145) Potassium Level 4.5 mmol/L (3.5-5.1) Chloride Level 104 mmol/L (98-107) Carbon Dioxide Level 28 mmol/L (21-32) Anion Gap 8 (6-14) Blood Urea Nitrogen 18 mg/dL (8-26) Creatinine 0.9 mg/dL (0.7-1.3) Estimated GFR (Cockcroft-Gault) 83.4 Glucose Level 110 mg/dL (70-99) Calcium Level 9.0 mg/dL (8.5-10.1) Meds Current Medications Albuterol/ Ipratropium (Duoneb) 3 ml RTQID NEB ; Start 01/07/17 at 12:00; Status UNV Azithromycin 500 mg/Sodium Chloride 250 ml @ 250 mls/hr Q24H IV Last administered on 01/07/17 10:22; Start 01/07/17 at 09:00 Ceftriaxone Sodium 1 gm/ Sodium Chloride 50 ml @ 100 mls/hr Q24H IV Last administered on 01/07/17 09:32; Start 01/07/17 at 09:00 Cyanocobalamin (Vitamin B-12) 1,000 mcg DAILY PO Last administered on 09:33; Start 01/07/17 at 09:00 Fluticasone Propionate (Flonase) 2 spray DAILY NS Last administered on 09:42; Start 01/07/17 at 09:00 Guaifenesin (Mucinex) 1,200 mg BID PO Last administered on 01/07/17 20:36; Start 01/07/17 at 09:00 Montelukast Sodium (Singulair) 10 mg DAILY PO Last administered on 01/07/17 09 :33; Start 01/07/17 at 09:00 Montelukast Sodium (Singulair) 10 mg QHS PO ; Start 01/07/17 at 21:00; Status UNV Mupirocin (Bactroban) 1 danyel BID NS Last administered on 01/07/17 20:37; Start 01/07/17 at 09:00 Non-Formulary Medication 1 puff PRN Q6HRS PRN INH SHORTNESS OF BREATH; Start at 08:30; Status UNV Non-Formulary Medication 2 puff PRN Q4-6HRS IH ; Start 01/07/17 at 08:30; Status UNV Prednisone (Prednisone) 40 mg DAILY PO Last administered on 01/07/17 10:22; Start 01/07/17 at 09:00 Vitamin D (Vitamin D3) 2,000 unit DAILY PO Last administered on 01/07/17 09:33 ; Start 01/07/17 at 09:00 Assessment Assessment IMPRESSION: 1. acute hypoxic respiratory failure 2. pneumonia RLL suspect grm neg grm + SIRS, not sepsis 3. AECOPD 4. wound R knee painful 5. pulmonary emphysema 6. moderate chronic PCL malnutrition 7. chronic low back pain with radicular pain RLE outpatient chronic pain management 8. cervical radiculopathy outpatient chronic pain management PLAN: respiratory failure/pneumonia/AECOPD Levaquin 750mbg IV x 1 ED 01/06/17 Begin Rocephin Zithromax IV daily grm- grm+ coverage nebulizer treatment duoneb/busesonide mucinex smoking cessation Solu Med 60mg IV ED Prednisone 40mg po daily begin 01/07 supplement O2 as needed Admit WBC 12.6 01/08 14.1-steroid chronic pain management Tramadol 50mg prn as per OP wound R knee Bactroban ointment bid malnutrition monitor intake chronic anemia B12 def continue oral B12 Admit 12.4 01/08 11.5 DVT/GI prophylaxis low risk ambulation PPI CXR to eval treatment, feeling better and voiced going home. Wheezing today- give additional IV Solumedrol 60mg x 1 and hold oral prednisone. Plan total 3 day zithromax then change to oral levaquin for dishcarge. Discharge initiated. For more details regarding further plans, please refer to the orders. Plan Plan For further plan of care, please refer to the orders. MADELINE SYKES MD 01/08/17 0921: IM PROGRESS NOTES- Assessment Assessment Patient also has many social issues including lack of money to buy meds. still congested. If improving,consider discharge tomorrow but prognosis is poor. The patient was seen and examined by me. Chart reviewed and plan of care formulated. Discussed with, reviewed and agree with [facility]'s notes, plan of care and orders with modifications as necessary. For more details regarding further plans, please refer to the orders. ROBBI LINCOLN APRN January 08, 2017 08:13 MADELINE SYKES MD January 08, 2017 09:21
[2017-01-08] MEDS ORDERED: methylPREDNISolone SOD SUCC PF 125 MG/2 ML VIAL. IV ONE (08:15)
--- NOTE | 2017-01-08 08:17 | DISCH ---
DISCHARGE INSTRUCTIONS Condition on Discharge Condition on Discharge: Stable Activity After Discharge Activity Instructions for Disc: Activity as tolerated Diet after Discharge Diet after Discharge: Cardiac Contacting the DRTiffanie after DC Call your doctor for: Concerns you may have Follow-Up Follow up with: Dr. Garcia or Jeffery on Wednesday next week ROBBI LINCOLN APRN January 08, 2017 08:17
[2017-01-08] MEDS ORDERED: PRED-220 PO (08:19)
[2017-01-08] MEDS ORDERED: LEVO500T38 PO (08:19)
[2017-01-08] MEDS: predniSONE 10 MG TABLET PO SCH (08:43)
[2017-01-08] MEDS: MUPIROCIN 2 % NASAL OINTMENT 22GM TUBE. NS SCH ×2 (08:45→21:42)
[2017-01-08] MEDS: CHOLECALCIFEROL (VITAMIN D3) 1,000 UNIT TABLET PO SCH (08:46)
[2017-01-08] MEDS: MONTELUKAST SODIUM 10 MG TABLET. PO SCH (08:46)
[2017-01-08] MEDS: CYANOCOBALAMIN (VITAMIN B-12) 1,000 MCG TABLET. PO SCH (08:46)
[2017-01-08] MEDS: FLUTICASONE 50MCG/NASAL SPRAY 16GM BOTTLE. NS SCH (09:00)
[2017-01-08] MEDS: AZITHROMYCIN 500 MG in IV NORMAL SALINE 250ML 250 ML IV SCH (09:54)
[2017-01-08 11:00] VITALS: BP 130/76
[2017-01-08 15:00] VITALS: BP 137/87
[2017-01-08 19:00] VITALS: BP_SYST 124; BP_SYST 131; BP_DIAS 64; BP_DIAS 78
[2017-01-08 23:00] VITALS: BP 125/74
[2017-01-09 03:00] VITALS: BP 137/83
[2017-01-09 05:21] LABS: BASO % 0 % (0-3); EOS % 0 % (0-3); HEMATOCRIT 33.4 % (39.0-53.0); HEMOGLOBIN 11.2 g/dL (13.0-17.5); LYMPH # 1.7 x10^3/uL (1.0-4.8); LYMPH % 13 % (24-48); MEAN CORPUSCULAR HEMOGLOBIN 28 pg (25-35); MEAN CORPUSCULAR HGB CONC 33 g/dL (31-37); MEAN CORPUSCULAR VOLUME 84 fL (79-100); MONO % 6 % (0-9); NEUT % 81 % (31-73); PLATELET COUNT 534 x10^3/uL (140-400); RED CELL DISTRIBUTION WIDTH 16.9 % (11.5-14.5); WHITE BLOOD COUNT 13.5 x10^3/uL (4.0-11.0)
[2017-01-09 05:27] LABS: CALCIUM 8.6 mg/dL (8.5-10.1); GFR 73.9; POTASSIUM 3.8 mmol/L (3.5-5.1)
[2017-01-09] MEDS: traMADol 50 MG TABLET PO PRN (06:42)
[2017-01-09 07:00] VITALS: BP 150/87
[2017-01-09] MEDS: PANTOPRAZOLE 40 MG TABLET.DR. PO SCH (08:08)
[2017-01-09] MEDS: CYANOCOBALAMIN (VITAMIN B-12) 1,000 MCG TABLET. PO SCH (08:08)
[2017-01-09] MEDS: MONTELUKAST SODIUM 10 MG TABLET. PO SCH (08:09)
[2017-01-09] MEDS: predniSONE 10 MG TABLET PO SCH (08:09)
[2017-01-09] MEDS: FLUTICASONE 50MCG/NASAL SPRAY 16GM BOTTLE. NS SCH (08:09)
[2017-01-09] MEDS: CHOLECALCIFEROL (VITAMIN D3) 1,000 UNIT TABLET PO SCH (08:09)
[2017-01-09] MEDS: IPRATRPIUM/ALBUTEROL 0.5/2.5MG 3 ML NEBU. NEB SCH ×2 (08:21→12:25)
[2017-01-09] MEDS: BUDESONIDE 0.5 MG/2 ML NEBU. NEB SCH (08:22)
[2017-01-09] MEDS: AZITHROMYCIN 500 MG in IV NORMAL SALINE 250ML 250 ML IV SCH (09:05)
[2017-01-09] MEDS: MUPIROCIN 2 % NASAL OINTMENT 22GM TUBE. NS SCH (09:06)
[2017-01-09 11:00] VITALS: BP 147/76
--- NOTE | 2017-01-09 13:38 | PDOC ---
PROGRESS NOTES Subjective Subjective feeling better ,ready to go home Objective Objective Vital Signs Date Time Temp Pulse Resp B/P (MAP) Pulse Ox O2 Delivery O2 Flow Rate FiO2 01/09/17 12:25 97 Room Air 01/09/17 11:00 97.5 68 22 147/76 (99) 97.5 Intake and Output 01/09/17 07:00 Intake Total 2410 ml Output Total 1100 ml Balance 1310 ml Intake Oral 2410 ml Output Urine Total 1100 ml # Voids 1 Physical Exam Abdomen: Normal bowel sounds, Soft Heart: Regular rate, Normal S1, Normal S2 Extremities: No clubbing General: Alert HEENT: PERRLA Lungs: Clear to auscultation MUSCULOSKELETAL: No deformity Neck: Supple Neuro: Normal speech Psych/Mental Status: Mental status NL Skin: No breakdown Diagnosis Problem List Problems Medical Problems: (1) COPD exacerbation Status: Acute (2) Pneumonia Status: Acute Assessment Assessment IMPRESSION: 1. acute hypoxic respiratory failure 2. pneumonia RLL suspect grm neg grm + SIRS, not sepsis 3. AECOPD 4. wound R knee painful 5. pulmonary emphysema 6. moderate chronic PCL malnutrition 7. chronic low back pain with radicular pain RLE outpatient chronic pain management 8. cervical radiculopathy outpatient chronic pain management. PLAN; d/c home today. po levaquin and prednisone 40 mg tapering doses. see discharge orders Problems: Plan Plan of Care Problems Medical Problems: (1) COPD exacerbation Status: Acute (2) Pneumonia Status: Acute Comment Review of Relevant I have reviewed the following items gautam (where applicable) has been applied. Labs Laboratory Tests Test 01/09/17 04:25 White Blood Count 13.5 x10^3/uL (4.0-11.0) Red Blood Count 4.00 x10^6/uL (4.30-5.70) Hemoglobin 11.2 g/dL (13.0-17.5) Hematocrit 33.4 % (39.0-53.0) Mean Corpuscular Volume 84 fL (79-100) Mean Corpuscular Hemoglobin 28 pg (25-35) Mean Corpuscular Hemoglobin Concent 33 g/dL (31-37) Red Cell Distribution Width 16.9 % (11.5-14.5) Platelet Count 534 x10^3/uL (140-400) Neutrophils (%) (Auto) 81 % (31-73) Lymphocytes (%) (Auto) 13 % (24-48) Monocytes (%) (Auto) 6 % (0-9) Eosinophils (%) (Auto) 0 % (0-3) Basophils (%) (Auto) 0 % (0-3) Neutrophils # (Auto) 10.9 x10^3uL (1.8-7.7) Lymphocytes # (Auto) 1.7 x10^3/uL (1.0-4.8) Monocytes # (Auto) 0.9 x10^3/uL (0.0-1.1) Eosinophils # (Auto) 0.0 x10^3/uL (0.0-0.7) Basophils # (Auto) 0.0 x10^3/uL (0.0-0.2) Sodium Level 139 mmol/L (136-145) Potassium Level 3.8 mmol/L (3.5-5.1) Chloride Level 101 mmol/L (98-107) Carbon Dioxide Level 28 mmol/L (21-32) Anion Gap 10 (6-14) Blood Urea Nitrogen 18 mg/dL (8-26) Creatinine 1.0 mg/dL (0.7-1.3) Estimated GFR (Cockcroft-Gault) 73.9 Glucose Level 110 mg/dL (70-99) Calcium Level 8.6 mg/dL (8.5-10.1) Microbiology 01/06/17 Blood Culture - Preliminary, Resulted NO GROWTH AFTER 2 DAYS Vitals/I & O Vital Sign - Last 24 Hours 01/08/17 01/08/17 01/08/17 01/08/17 15:00 16:09 16:41 19:00 Temp 97.4 98.1 97.4 98.1 Pulse 80 77 Resp 22 19 B/P (MAP) 137/87 (104) 124/78 (93) Pulse Ox 96 96 96 O2 Delivery Room Air Room Air Room Air Room Air 01/08/17 01/08/17 01/08/17 01/08/17 19:20 20:08 23:00 23:21 Temp 98.0 98.0 Pulse 69 Resp 16 20 B/P (MAP) 125/74 (91) Pulse Ox 97 O2 Delivery Room Air Room Air Room Air Room Air 01/09/17 01/09/17 01/09/1720/17 00:26 03:00 06:42 07:00 Temp 98.0 98.3 98.0 98.3 Pulse 66 66 Resp 18 18 18 20 B/P (MAP) 137/83 (101) 150/87 (108) Pulse Ox 96 96 96 96 O2 Delivery Room Air Room Air Room Air 01/09/17 01/09/17 01/09/17 01/09/17 07:42 08:15 08:18 11:00 Temp 97.5 97.5 Pulse 68 Resp 22 B/P (MAP) 147/76 (99) Pulse Ox 98 99 O2 Delivery Room Air Room Air Room Air Room Air 01/09/17 12:25 Pulse Ox 97 O2 Delivery Room Air Intake and Output 01/08/17 01/08/17 01/09/17 15:00 23:00 07:00 Intake Total 750 ml 690 ml 970 ml Output Total 300 ml 800 ml Balance 450 ml -110 ml 970 ml KAVON GRAVES MD January 09, 2017 13:38
--- NOTE | 2017-01-11 10:58 | PDOC3 ---
IM DISCHARGE SUMMARY Date of Admission Date of Admission Date of Admission: January 06, 2017 at 16:45 Date of Discharge Date of Discharge 01/09/17 Primary Diagnosis Primary Diagnosis IMPRESSION: 1. acute hypoxic respiratory failure secondary to pneumonia 2. pneumonia RLL suspect grm neg grm + SIRS, not sepsis 3. AECOPD 4. wound R knee painful-closed puncture appearance 5. pulmonary emphysema 6. moderate chronic PCL malnutrition 7. chronic low back pain with radicular pain RLE outpatient chronic pain management 8. cervical radiculopathy outpatient chronic pain management Problems: Consults Consults None Procedures Procedures None Labs Labs Laboratory Tests Test 01/09/17 04:25 White Blood Count 13.5 x10^3/uL (4.0-11.0) Red Blood Count 4.00 x10^6/uL (4.30-5.70) Hemoglobin 11.2 g/dL (13.0-17.5) Hematocrit 33.4 % (39.0-53.0) Mean Corpuscular Volume 84 fL (79-100) Mean Corpuscular Hemoglobin 28 pg (25-35) Mean Corpuscular Hemoglobin Concent 33 g/dL (31-37) Red Cell Distribution Width 16.9 % (11.5-14.5) Platelet Count 534 x10^3/uL (140-400) Neutrophils (%) (Auto) 81 % (31-73) Lymphocytes (%) (Auto) 13 % (24-48) Monocytes (%) (Auto) 6 % (0-9) Eosinophils (%) (Auto) 0 % (0-3) Basophils (%) (Auto) 0 % (0-3) Neutrophils # (Auto) 10.9 x10^3uL (1.8-7.7) Lymphocytes # (Auto) 1.7 x10^3/uL (1.0-4.8) Monocytes # (Auto) 0.9 x10^3/uL (0.0-1.1) Eosinophils # (Auto) 0.0 x10^3/uL (0.0-0.7) Basophils # (Auto) 0.0 x10^3/uL (0.0-0.2) Sodium Level 139 mmol/L (136-145) Potassium Level 3.8 mmol/L (3.5-5.1) Chloride Level 101 mmol/L (98-107) Carbon Dioxide Level 28 mmol/L (21-32) Anion Gap 10 (6-14) Blood Urea Nitrogen 18 mg/dL (8-26) Creatinine 1.0 mg/dL (0.7-1.3) Estimated GFR (Cockcroft-Gault) 73.9 Glucose Level 110 mg/dL (70-99) Calcium Level 8.6 mg/dL (8.5-10.1) Brief hospital course Brief hospital course This 71 year old male who presented with acute hypoxic respiratory failure was admitted. The following is a summary of his treatment: PLAN: respiratory failure/pneumonia/AECOPD Levaquin 750mbg IV x 1 ED 01/06/17 Begin Rocephin Zithromax IV daily grm- grm+ coverage nebulizer treatment duoneb/busesonide mucinex smoking cessation Solu Med 60mg IV ED Prednisone 40mg po daily begin 01/07 supplement O2 as needed Admit WBC 12.6 01/09 13.9 steroid chronic pain management Tramadol 50mg prn as per OP wound R knee Bactroban ointment bid malnutrition monitor intake chronic anemia B12 def continue oral B12 Admit 12.4 01/09 11.2 DVT/GI prophylaxis low risk ambulation PPI For more details regarding the past history, family history, social history, surgical history and other details, please refer to History and Physical. Cough, shortness of breath, and wheezing improving. Will discharge home. Please refer to discharge orders. Medications Medications reviewed and reconciled for discharge. Allergy Allergies Coded Allergies Type Severity Reaction Last Updated Verified No Known Drug Allergies 11/07/14 No Follow up in 3-5 days. DISPOSITION: Home Comments Discharge Management - 35 minutes. For other details please refer to discharge instructions ROBBI LINCOLN JUNIOR BUYER January 11, 2017 10:58
== END 2017-01-09 13:53 | disposition home or self-care (01) | DRG 177 ==
LOC: ER 15:26 → 5 SOUTH 16:45
PROVIDERS: ADMIT Internal Medicine; ATTEND Internal Medicine
DX: J15.6 Pneumonia due to other Gram-negative bacteria (principal); J96.01 Acute respiratory failure with hypoxia; E44.0 Moderate protein-calorie malnutrition; J44.1 Chronic obstructive pulmonary disease with (acute) exacerbation; J44.0 Chronic obstructive pulmonary disease with (acute) lower respiratory infection; Z68.1 Body mass index [BMI] 19.9 or less, adult; G20 Parkinson's disease; M54.5 Low back pain; M54.12 Radiculopathy, cervical region; E53.8 Deficiency of other specified B group vitamins; D64.9 Anemia, unspecified; G89.29 Other chronic pain; E55.9 Vitamin D deficiency, unspecified; F17.210 Nicotine dependence, cigarettes, uncomplicated; I73.9 Peripheral vascular disease, unspecified; Z71.6 Tobacco abuse counseling; Z87.01 Personal history of pneumonia (recurrent); Z79.1 Long term (current) use of non-steroidal anti-inflammatories (NSAID); Z79.899 Other long term (current) drug therapy
CPT/HCPCS: 36415; 71020; 80048; 80053; 83880; 84484; 85027; 87040; 93005; 94250; 94640; 94760; 96374; 96375; J0456; J0696; J1956; J2930; J7050; J7512; J7620; 99285-25; J7030

== ENCOUNTER 2017-11-01 17:07 | Inpatient (IN) | payer OTHER ==
[2017-11-01 17:38] LABS: BASO # 0.2 x10^3/uL (0.0-0.2); BASO % 1 % (0-3); EOS # 0.2 x10^3/uL (0.0-0.7); EOS % 2 % (0-3); HEMOGLOBIN 11.8 g/dL (13.0-17.5); LYMPH # 1.1 x10^3/uL (1.0-4.8); LYMPH % 7 % (24-48); MEAN CORPUSCULAR HEMOGLOBIN 28 pg (25-35); MEAN CORPUSCULAR HGB CONC 33 g/dL (31-37); MEAN CORPUSCULAR VOLUME 85 fL (79-100); MONO # 0.9 x10^3/uL (0.0-1.1); MONO % 6 % (0-9); NEUT # 13.3 x10^3uL (1.8-7.7); NEUT % 84 % (31-73); PLATELET COUNT 342 x10^3/uL (140-400); RED BLOOD COUNT 4.25 x10^6/uL (4.30-5.70); RED CELL DISTRIBUTION WIDTH 17.9 % (11.5-14.5); WHITE BLOOD COUNT 15.8 x10^3/uL (4.0-11.0)
[2017-11-01 17:42] LABS: ADD MAN DIFF? YES
[2017-11-01 17:52] LABS: ANION GAP 8 (6-14); BLOOD UREA NITROGEN 20 mg/dL (8-26); BUN/CREATININE RATIO 20 (6-20); CALCIUM 8.9 mg/dL (8.5-10.1); CARBON DIOXIDE 31 mmol/L (21-32); CHLORIDE 109 mmol/L (98-107); GFR 73.7; GLUCOSE 118 mg/dL (70-99); POTASSIUM 3.4 mmol/L (3.5-5.1); SODIUM 148 mmol/L (136-145)
[2017-11-01 17:58] LABS: ALBUMIN 2.9 g/dL (3.4-5.0); ALBUMIN/GLOBULIN RATIO 0.9 (1.0-1.7); ALK PHOS 99 U/L (46-116); ALT (SGPT) 23 U/L (16-63); AST (SGOT) 21 U/L (15-37); LIPASE 154 U/L (73-393); TOTAL BILIRUBIN 0.5 mg/dL (0.2-1.0); TOTAL PROTEIN 6.3 g/dL (6.4-8.2)
[2017-11-01 18:00] LABS: LACTIC ACID 1.1 mmol/L (0.4-2.0)
[2017-11-01 18:02] LABS: TROPONINI < 0.017 ng/mL (0.000-0.055)
[2017-11-01 18:07] LABS: INFLUENZA A PATIENT NEGATIVE (NEGATIVE); INFLUENZA B PATIENT NEGATIVE (NEGATIVE); OBC FLU VALID
[2017-11-01 18:20] LABS: BILIRUBIN,URINE NEGATIVE (NEG); CLARITY,URINE CLEAR; COLOR,URINE YELLOW; GLUCOSE,URINE 100 mg/dL (NEG); NITRITE,URINE NEGATIVE (NEG); PROTEIN,URINE 30 mg/dL (NEG-TRACE)
[2017-11-01 18:25] LABS: % EOS 1 % (0-5); % LYMPHS 9 % (24-48); % MONOS 2 % (0-10); % SEGS 88 % (35-66); ANISOCYTOSIS SLIGHT; PLT ESTIMATE ADEQUATE (ADEQUATE)
[2017-11-01 18:28] LABS: BACTERIA,URINE 0 /HPF (0-FEW); RBC,URINE RARE /HPF (0-2); SQUAMOUS EPITHELIAL CELL,UR OCC /LPF; WBC,URINE 0 /HPF (0-4)
[2017-11-01] MEDS: AZITHRMYCN 500MG IVPB FOR OMNI 250 ML IV (19:15)
[2017-11-01] MEDS ORDERED: ONDANSETRON PF 4 MG/2 ML VIAL. IV (19:45)
[2017-11-01] MEDS: IPRATRPIUM/ALBUTEROL 0.5/2.5MG 3 ML NEBU. NEB (19:50)
[2017-11-01] MEDS: fentaNYL PF VIAL 100 MCG/2 ML VIAL IV (21:47)
[2017-11-02] MEDS: ACETAMINOPHEN 325 MG TABLET. PO (03:59)
[2017-11-02 05:09] LABS: ADD MAN DIFF? NO
[2017-11-02 05:18] LABS: BASO # 0.1 x10^3/uL (0.0-0.2); BASO % 1 % (0-3); EOS # 0.3 x10^3/uL (0.0-0.7); EOS % 3 % (0-3); HEMATOCRIT 31.3 % (39.0-53.0); HEMOGLOBIN 10.1 g/dL (13.0-17.5); LYMPH # 1.2 x10^3/uL (1.0-4.8); LYMPH % 11 % (24-48); MEAN CORPUSCULAR HEMOGLOBIN 27 pg (25-35); MEAN CORPUSCULAR HGB CONC 32 g/dL (31-37); MEAN CORPUSCULAR VOLUME 84 fL (79-100); MONO % 9 % (0-9); NEUT % 78 % (31-73); PLATELET COUNT 274 x10^3/uL (140-400); RED BLOOD COUNT 3.71 x10^6/uL (4.30-5.70); RED CELL DISTRIBUTION WIDTH 17.6 % (11.5-14.5); WHITE BLOOD COUNT 11.7 x10^3/uL (4.0-11.0)
[2017-11-02 05:44] LABS: ALBUMIN 2.3 g/dL (3.4-5.0); ALBUMIN/GLOBULIN RATIO 0.7 (1.0-1.7); ALK PHOS 89 U/L (46-116); ALT (SGPT) 18 U/L (16-63); ANION GAP 7 (6-14); AST (SGOT) 18 U/L (15-37); BLOOD UREA NITROGEN 14 mg/dL (8-26); BUN/CREATININE RATIO 16 (6-20); CALCIUM 8.7 mg/dL (8.5-10.1); CARBON DIOXIDE 30 mmol/L (21-32); CHLORIDE 109 mmol/L (98-107); CREATININE 0.9 mg/dL (0.7-1.3); GFR 83.2; GLUCOSE 110 mg/dL (70-99); POTASSIUM 3.2 mmol/L (3.5-5.1); SODIUM 146 mmol/L (136-145); TOTAL BILIRUBIN 0.3 mg/dL (0.2-1.0); TOTAL PROTEIN 5.5 g/dL (6.4-8.2)
[2017-11-02] MEDS ORDERED: cefTRIAXone SODIUM 2 GM in IV DEXTROSE 5% 100 ML IV (08:45)
[2017-11-02] MEDS: MONTELUKAST SODIUM 10 MG TABLET. PO (09:49)
[2017-11-02] MEDS: CYANOCOBALAMIN (VITAMIN B-12) 1,000 MCG TABLET. PO (09:49)
[2017-11-02] MEDS: SENNOSIDES/DOCUSATE 8.6/50MG TABLET. PO (09:49)
[2017-11-02] MEDS: POTASSIUM CHLORIDE 20 MEQ TABLET.ER. PO ×2 (09:50→14:19)
[2017-11-02] MEDS: tiZANidine 4 MG TABLET. PO ×3 (09:50→20:29)
[2017-11-02] MEDS: CHOLECALCIFEROL (VITAMIN D3) 1,000 UNIT TABLET PO (09:50)
[2017-11-02] MEDS: PANTOPRAZOLE 40 MG TABLET.DR. PO (09:50)
[2017-11-02] MEDS: SERTRALINE 50 MG TABLET. PO (09:50)
[2017-11-02] MEDS: AZITHROMYCIN 500 MG in IV NORMAL SALINE 250ML 250 ML IV (09:51)
[2017-11-02] MEDS: FLUTICASONE 50MCG/NASAL SPRAY 16GM BOTTLE. NS (09:51)
[2017-11-02] MEDS: BUDESONIDE 0.5 MG/2 ML NEBU. NEB ×2 (10:00→19:06)
[2017-11-02] MEDS: ONDANSETRON PF 4 MG/2 ML VIAL. IV (10:52)
[2017-11-02] MEDS: traMADol 50 MG TABLET PO ×2 (12:03→20:29)
[2017-11-02] MEDS: IPRATRPIUM/ALBUTEROL 0.5/2.5MG 3 ML NEBU. NEB ×4 (12:31→19:06)
[2017-11-02] MEDS: LACTOBACILLUS RHAMNOSUS GG 1 CAPSULE. PO (20:29)
[2017-11-02] MEDS: CETIRIZINE HCL 10 MG TABLET. PO (20:29)
[2017-11-02] MEDS: cefTRIAXone IV Push 2 GM VIAL. IVP (20:54)
[2017-11-03 04:57] LABS: ADD MAN DIFF? NO
[2017-11-03 05:00] LABS: BASO # 0.1 x10^3/uL (0.0-0.2); BASO % 1 % (0-3); EOS # 0.4 x10^3/uL (0.0-0.7); EOS % 4 % (0-3); HEMATOCRIT 28.7 % (39.0-53.0); HEMOGLOBIN 9.5 g/dL (13.0-17.5); LYMPH # 1.4 x10^3/uL (1.0-4.8); LYMPH % 15 % (24-48); MEAN CORPUSCULAR HEMOGLOBIN 28 pg (25-35); MEAN CORPUSCULAR HGB CONC 33 g/dL (31-37); MEAN CORPUSCULAR VOLUME 85 fL (79-100); MONO # 0.9 x10^3/uL (0.0-1.1); MONO % 9 % (0-9); NEUT % 71 % (31-73); PLATELET COUNT 257 x10^3/uL (140-400); RED BLOOD COUNT 3.38 x10^6/uL (4.30-5.70); RED CELL DISTRIBUTION WIDTH 17.9 % (11.5-14.5); WHITE BLOOD COUNT 9.9 x10^3/uL (4.0-11.0)
[2017-11-03] MEDS: tiZANidine 4 MG TABLET. PO ×3 (05:04→23:04)
[2017-11-03] MEDS: traMADol 50 MG TABLET PO ×3 (05:04→20:14)
[2017-11-03 05:19] LABS: ANION GAP 5 (6-14); BLOOD UREA NITROGEN 15 mg/dL (8-26); CALCIUM 8.5 mg/dL (8.5-10.1); CARBON DIOXIDE 31 mmol/L (21-32); CHLORIDE 107 mmol/L (98-107); GFR 73.7; GLUCOSE 96 mg/dL (70-99); MAGNESIUM 1.6 mg/dL (1.8-2.4); POTASSIUM 4.2 mmol/L (3.5-5.1); SODIUM 143 mmol/L (136-145)
[2017-11-03] MEDS: IPRATRPIUM/ALBUTEROL 0.5/2.5MG 3 ML NEBU. NEB ×4 (07:57→19:14)
[2017-11-03] MEDS: BUDESONIDE 0.5 MG/2 ML NEBU. NEB ×2 (07:57→19:14)
[2017-11-03] MEDS: AZITHROMYCIN 500 MG in IV NORMAL SALINE 250ML 250 ML IV (09:59)
[2017-11-03] MEDS: CHOLECALCIFEROL (VITAMIN D3) 1,000 UNIT TABLET PO (10:06)
[2017-11-03] MEDS: LACTOBACILLUS RHAMNOSUS GG 1 CAPSULE. PO ×2 (10:07→20:13)
[2017-11-03] MEDS: SERTRALINE 50 MG TABLET. PO (10:07)
[2017-11-03] MEDS: PANTOPRAZOLE 40 MG TABLET.DR. PO (10:07)
[2017-11-03] MEDS: CYANOCOBALAMIN (VITAMIN B-12) 1,000 MCG TABLET. PO (10:07)
[2017-11-03] MEDS: SENNOSIDES/DOCUSATE 8.6/50MG TABLET. PO (10:08)
[2017-11-03] MEDS: FLUTICASONE 50MCG/NASAL SPRAY 16GM BOTTLE. NS (10:08)
[2017-11-03] MEDS: MONTELUKAST SODIUM 10 MG TABLET. PO (10:34)
[2017-11-03] MEDS: POLYETHYLENE GLYCOL 3350 17 GM PACKET. PO (10:34)
[2017-11-03] MEDS: predniSONE 20 MG TABLET PO (10:35)
[2017-11-03] MEDS: ACETAMINOPHEN 325 MG TABLET. PO (10:35)
[2017-11-03] MEDS: MAGNESIUM SULFATE 2GM 50 ML IV (12:51)
[2017-11-03] MEDS: cefTRIAXone IV Push 2 GM VIAL. IVP (18:12)
[2017-11-03] MEDS: CETIRIZINE HCL 10 MG TABLET. PO (20:13)
[2017-11-04 04:23] LABS: ADD MAN DIFF? NO
[2017-11-04 04:36] LABS: BASO % 0 % (0-3); EOS % 0 % (0-3); HEMATOCRIT 27.8 % (39.0-53.0); HEMOGLOBIN 9.3 g/dL (13.0-17.5); LYMPH # 0.9 x10^3/uL (1.0-4.8); LYMPH % 11 % (24-48); MEAN CORPUSCULAR HEMOGLOBIN 28 pg (25-35); MEAN CORPUSCULAR HGB CONC 33 g/dL (31-37); MEAN CORPUSCULAR VOLUME 83 fL (79-100); MONO # 0.7 x10^3/uL (0.0-1.1); MONO % 8 % (0-9); NEUT # 6.5 x10^3uL (1.8-7.7); NEUT % 80 % (31-73); PLATELET COUNT 260 x10^3/uL (140-400); RED BLOOD COUNT 3.34 x10^6/uL (4.30-5.70); RED CELL DISTRIBUTION WIDTH 17.5 % (11.5-14.5); WHITE BLOOD COUNT 8.1 x10^3/uL (4.0-11.0)
[2017-11-04 04:53] LABS: ANION GAP 4 (6-14); BLOOD UREA NITROGEN 19 mg/dL (8-26); CALCIUM 8.6 mg/dL (8.5-10.1); CARBON DIOXIDE 31 mmol/L (21-32); CHLORIDE 101 mmol/L (98-107); CREATININE 0.8 mg/dL (0.7-1.3); GFR 95.3; GLUCOSE 100 mg/dL (70-99); MAGNESIUM 2.2 mg/dL (1.8-2.4); POTASSIUM 4.7 mmol/L (3.5-5.1); SODIUM 136 mmol/L (136-145)
[2017-11-04] MEDS: tiZANidine 4 MG TABLET. PO ×2 (05:59→12:22)
[2017-11-04] MEDS: BUDESONIDE 0.5 MG/2 ML NEBU. NEB (08:10)
[2017-11-04] MEDS: IPRATRPIUM/ALBUTEROL 0.5/2.5MG 3 ML NEBU. NEB ×3 (08:11→16:05)
[2017-11-04] MEDS: POLYETHYLENE GLYCOL 3350 17 GM PACKET. PO (08:15)
[2017-11-04] MEDS: FLUTICASONE 50MCG/NASAL SPRAY 16GM BOTTLE. NS (08:18)
[2017-11-04] MEDS: traMADol 50 MG TABLET PO (08:20)
[2017-11-04] MEDS: CYANOCOBALAMIN (VITAMIN B-12) 1,000 MCG TABLET. PO (08:20)
[2017-11-04] MEDS: SERTRALINE 50 MG TABLET. PO (08:22)
[2017-11-04] MEDS: SENNOSIDES/DOCUSATE 8.6/50MG TABLET. PO (08:23)
[2017-11-04] MEDS: CHOLECALCIFEROL (VITAMIN D3) 1,000 UNIT TABLET PO (08:23)
[2017-11-04] MEDS: LACTOBACILLUS RHAMNOSUS GG 1 CAPSULE. PO (08:23)
[2017-11-04] MEDS: PANTOPRAZOLE 40 MG TABLET.DR. PO (08:23)
[2017-11-04] MEDS: predniSONE 20 MG TABLET PO (08:23)
[2017-11-04] MEDS: MONTELUKAST SODIUM 10 MG TABLET. PO (08:23)
[2017-11-04] MEDS: MAGNESIUM CITRATE 296 ML SOLUTION. PO (12:22)
[2017-11-04] MEDS: ACETAMINOPHEN 325 MG TABLET. PO (12:27)
== END 2017-11-04 17:55 | disposition home or self-care (01) | DRG 177 ==
LOC: ER 17:07 → 5 NORTH 19:30
DX: J15.6 Pneumonia due to other Gram-negative bacteria (principal); J96.20 Acute and chronic respiratory failure, unspecified whether with hypoxia or hypercapnia; E43 Unspecified severe protein-calorie malnutrition; E87.0 Hyperosmolality and hypernatremia; D64.9 Anemia, unspecified; G20 Parkinson's disease; Z99.81 Dependence on supplemental oxygen; J44.0 Chronic obstructive pulmonary disease with (acute) lower respiratory infection; J44.1 Chronic obstructive pulmonary disease with (acute) exacerbation; Z68.1 Body mass index [BMI] 19.9 or less, adult; E83.42 Hypomagnesemia; E87.6 Hypokalemia; F17.200 Nicotine dependence, unspecified, uncomplicated; F39 Unspecified mood [affective] disorder; M54.12 Radiculopathy, cervical region; G89.29 Other chronic pain; I12.9 Hypertensive chronic kidney disease with stage 1 through stage 4 chronic kidney disease, or unspecified chronic kidney disease; K59.00 Constipation, unspecified; M54.10 Radiculopathy, site unspecified; N18.2 Chronic kidney disease, stage 2 (mild); Z87.01 Personal history of pneumonia (recurrent)
CPT/HCPCS: 36415; 71045; 80048; 80053; 81001; 83605; 83690; 83735; 84484; 85007; 85025; 87040; 87804; 87804-59; 93005; 94640; 96365; 97161-GP; 97166-GO; 97530-GO; 97535-GO; 99285; 99285-25; J0456; J0690; J0696; J2405; J3010; J3475; J7050; J7512; J7620; J7626

== ENCOUNTER 2017-11-25 12:25 | Inpatient (IN) | payer OTHER ==
[2017-11-25 14:23] LABS: AMPHETAMINE/METHAMPHETAMINE NEG (NEG); BARBITURATES NEG (NEG); BENZODIAZEPINES NEG (NEG); CANNABINOIDS NEG (NEG); COCAINE NEG (NEG); ETHANOL, URINE NEG (NEG); METHADONE NEG (NEG); OPIATES POS (NEG); PHENCYCLIDINE NEG (NEG)
[2017-11-25] MEDS: IV NORMAL SALINE 1000ML BAG 1,000 ML IV (14:34)
[2017-11-25 14:57] LABS: BASO % 0 % (0-3); EOS # 0.1 x10^3/uL (0.0-0.7); EOS % 0 % (0-3); HEMATOCRIT 37.3 % (39.0-53.0); HEMOGLOBIN 12.2 g/dL (13.0-17.5); LYMPH # 0.8 x10^3/uL (1.0-4.8); LYMPH % 6 % (24-48); MEAN CORPUSCULAR HEMOGLOBIN 28 pg (25-35); MEAN CORPUSCULAR HGB CONC 33 g/dL (31-37); MEAN CORPUSCULAR VOLUME 85 fL (79-100); MONO # 0.3 x10^3/uL (0.0-1.1); MONO % 2 % (0-9); NEUT # 12.2 x10^3uL (1.8-7.7); NEUT % 91 % (31-73); PLATELET COUNT 224 x10^3/uL (140-400); RED BLOOD COUNT 4.37 x10^6/uL (4.30-5.70); RED CELL DISTRIBUTION WIDTH 16.8 % (11.5-14.5); WHITE BLOOD COUNT 13.3 x10^3/uL (4.0-11.0)
[2017-11-25 15:05] LABS: ANION GAP 9 (6-14); BLOOD UREA NITROGEN 25 mg/dL (8-26); CALCIUM 8.9 mg/dL (8.5-10.1); CARBON DIOXIDE 28 mmol/L (21-32); CHLORIDE 103 mmol/L (98-107); CREATININE 1.2 mg/dL (0.7-1.3); GFR 59.7; GLUCOSE 104 mg/dL (70-99); POTASSIUM 4.3 mmol/L (3.5-5.1); SODIUM 140 mmol/L (136-145)
[2017-11-25 15:09] LABS: ADD MAN DIFF? YES
[2017-11-25 15:10] LABS: PARTIAL THROMBOPLASTIN TIME 33 SEC (24-38); PROTHROMBIN TIME PATIENT 13.1 SEC (11.7-14.0)
[2017-11-25 15:11] LABS: ALBUMIN 3.2 g/dL (3.4-5.0); ALK PHOS 75 U/L (46-116); ALT (SGPT) 16 U/L (16-63); AST (SGOT) 19 U/L (15-37); DIRECT BILIRUBIN 0.1 mg/dL (0.0-0.2); LIPASE 87 U/L (73-393); TOTAL BILIRUBIN 0.7 mg/dL (0.2-1.0); TOTAL PROTEIN 6.4 g/dL (6.4-8.2)
[2017-11-25 15:13] LABS: TROPONINI < 0.017 ng/mL (0.000-0.055)
[2017-11-25 15:19] LABS: LACTIC ACID 1.2 mmol/L (0.4-2.0)
[2017-11-25 15:22] LABS: CKMB MASS 1.7 ng/mL (0.0-3.6); CREATINE KINASE 37 U/L (39-308)
[2017-11-25] MEDS: IOHEXOL 300 MG/ML 100ML VIAL. IV (15:30)
[2017-11-25] MEDS: IOHEXOL 240 MG/ML 50ML VIAL. PO (15:30)
[2017-11-25] MEDS ORDERED: CONTRAST GIVEN MC (15:30)
[2017-11-25] MEDS ORDERED: ONDANSETRON PF 4 MG/2 ML VIAL. IV (16:45)
[2017-11-25 16:48] LABS: BILIRUBIN,URINE NEGATIVE (NEG); CLARITY,URINE CLEAR; COLOR,URINE YELLOW; GLUCOSE,URINE NEGATIVE (NEG); NITRITE,URINE NEGATIVE (NEG); PROTEIN,URINE NEGATIVE (NEG-TRACE)
[2017-11-25 17:14] LABS: RBC,URINE 0 /HPF (0-2); WBC,URINE OCC /HPF (0-4)
[2017-11-25 17:15] LABS: BACTERIA,URINE 0 /HPF (0-FEW); SQUAMOUS EPITHELIAL CELL,UR OCC /LPF
[2017-11-25 17:16] LABS: HYALINE CASTS, URINE OCCASIONAL /HPF
[2017-11-25 17:19] LABS: % LYMPHS 3 % (24-48); % MONOS 3 % (0-10); % SEGS 94 % (35-66); ANISOCYTOSIS SLIGHT; PLT ESTIMATE ADEQUATE (ADEQUATE); POIKILOCYTOSIS SLIGHT
[2017-11-25] MEDS: ATORVASTATIN CALCIUM 40 MG TABLET. PO (20:59)
[2017-11-25] MEDS: CETIRIZINE HCL 10 MG TABLET. PO (21:00)
[2017-11-25] MEDS ORDERED: NON FORMULARY ITEM (Budesonide/Formoterol Fumarate (Symbicort 160-4.5 Mcg Inhaler) 2 PUFF) IH (21:00)
[2017-11-25] MEDS: traMADol 50 MG TABLET PO (21:00)
[2017-11-25] MEDS: ALBUTEROL SULFATE 2.5 MG/3 ML NEBU. NEB (23:50)
[2017-11-25] MEDS: BUDESONIDE 0.5 MG/2 ML NEBU. NEB (23:50)
[2017-11-26 05:17] LABS: ADD MAN DIFF? NO
[2017-11-26 05:42] LABS: BASO # 0.1 x10^3/uL (0.0-0.2); BASO % 1 % (0-3); EOS # 0.3 x10^3/uL (0.0-0.7); EOS % 4 % (0-3); HEMATOCRIT 33.7 % (39.0-53.0); HEMOGLOBIN 11.1 g/dL (13.0-17.5); LYMPH # 1.8 x10^3/uL (1.0-4.8); LYMPH % 21 % (24-48); MEAN CORPUSCULAR HEMOGLOBIN 28 pg (25-35); MEAN CORPUSCULAR HGB CONC 33 g/dL (31-37); MEAN CORPUSCULAR VOLUME 86 fL (79-100); MONO # 0.8 x10^3/uL (0.0-1.1); MONO % 9 % (0-9); NEUT # 5.8 x10^3uL (1.8-7.7); NEUT % 65 % (31-73); PLATELET COUNT 248 x10^3/uL (140-400); RED BLOOD COUNT 3.93 x10^6/uL (4.30-5.70); WHITE BLOOD COUNT 8.8 x10^3/uL (4.0-11.0)
[2017-11-26 05:56] LABS: ALBUMIN 3.1 g/dL (3.4-5.0); ALBUMIN/GLOBULIN RATIO 1.2 (1.0-1.7); ALK PHOS 79 U/L (46-116); ALT (SGPT) 16 U/L (16-63); ANION GAP 8 (6-14); AST (SGOT) 19 U/L (15-37); BLOOD UREA NITROGEN 23 mg/dL (8-26); BUN/CREATININE RATIO 26 (6-20); CALCIUM 8.6 mg/dL (8.5-10.1); CARBON DIOXIDE 29 mmol/L (21-32); CHLORIDE 104 mmol/L (98-107); CREATININE 0.9 mg/dL (0.7-1.3); GFR 83.2; GLUCOSE 76 mg/dL (70-99); POTASSIUM 4.3 mmol/L (3.5-5.1); SODIUM 141 mmol/L (136-145); TOTAL BILIRUBIN 0.4 mg/dL (0.2-1.0); TOTAL PROTEIN 5.7 g/dL (6.4-8.2)
[2017-11-26] MEDS: BUDESONIDE 0.5 MG/2 ML NEBU. NEB ×2 (07:25→20:11)
[2017-11-26] MEDS: ALBUTEROL SULFATE 2.5 MG/3 ML NEBU. NEB ×4 (07:26→20:11)
[2017-11-26] MEDS: PANTOPRAZOLE 40 MG TABLET.DR. PO (08:59)
[2017-11-26] MEDS: CYANOCOBALAMIN (VITAMIN B-12) 1,000 MCG TABLET. PO (08:59)
[2017-11-26] MEDS: FLUTICASONE 50MCG/NASAL SPRAY 16GM BOTTLE. NS (08:59)
[2017-11-26] MEDS: CHOLECALCIFEROL (VITAMIN D3) 1,000 UNIT TABLET PO (08:59)
[2017-11-26] MEDS: MONTELUKAST SODIUM 10 MG TABLET. PO (08:59)
[2017-11-26] MEDS ORDERED: SERTRALINE 50 MG TABLET. PO (09:00)
[2017-11-26] MEDS ORDERED: LISINOPRIL 20 MG TABLET PO (09:00)
[2017-11-26] MEDS: amLODIPine BESYLATE 5 MG TABLET PO (09:00)
[2017-11-26] MEDS: LISINOPRIL 20 MG TABLET PO (09:00)
[2017-11-26] MEDS: traMADol 50 MG TABLET PO (09:41)
[2017-11-26] MEDS: IVERMECTIN 3 MG TABLET PO (12:30)
[2017-11-26 14:25] LABS: C DIFF BY PCR Negative (Negative)
[2017-11-26] MEDS: ATORVASTATIN CALCIUM 40 MG TABLET. PO (21:02)
[2017-11-26] MEDS: SERTRALINE 50 MG TABLET. PO (21:03)
[2017-11-26] MEDS: CETIRIZINE HCL 10 MG TABLET. PO (21:03)
[2017-11-27 05:40] LABS: ADD MAN DIFF? NO
[2017-11-27 05:44] LABS: BASO # 0.1 x10^3/uL (0.0-0.2); BASO % 1 % (0-3); EOS # 0.7 x10^3/uL (0.0-0.7); EOS % 8 % (0-3); HEMATOCRIT 35.2 % (39.0-53.0); HEMOGLOBIN 11.3 g/dL (13.0-17.5); LYMPH # 1.5 x10^3/uL (1.0-4.8); LYMPH % 18 % (24-48); MEAN CORPUSCULAR HEMOGLOBIN 28 pg (25-35); MEAN CORPUSCULAR HGB CONC 32 g/dL (31-37); MEAN CORPUSCULAR VOLUME 86 fL (79-100); MONO # 0.9 x10^3/uL (0.0-1.1); MONO % 11 % (0-9); NEUT # 5.1 x10^3uL (1.8-7.7); NEUT % 62 % (31-73); PLATELET COUNT 244 x10^3/uL (140-400); RED CELL DISTRIBUTION WIDTH 17.1 % (11.5-14.5); WHITE BLOOD COUNT 8.2 x10^3/uL (4.0-11.0)
[2017-11-27 06:09] LABS: ANION GAP 3 (6-14); BLOOD UREA NITROGEN 20 mg/dL (8-26); CALCIUM 8.8 mg/dL (8.5-10.1); CARBON DIOXIDE 34 mmol/L (21-32); CHLORIDE 106 mmol/L (98-107); GFR 73.7; GLUCOSE 92 mg/dL (70-99); POTASSIUM 3.8 mmol/L (3.5-5.1); SODIUM 143 mmol/L (136-145)
[2017-11-27] MEDS: traMADol 50 MG TABLET PO (06:12)
[2017-11-27] MEDS: PANTOPRAZOLE 40 MG TABLET.DR. PO (06:12)
[2017-11-27] MEDS: BUDESONIDE 0.5 MG/2 ML NEBU. NEB (08:31)
[2017-11-27] MEDS: ALBUTEROL SULFATE 2.5 MG/3 ML NEBU. NEB ×3 (08:31→14:51)
[2017-11-27] MEDS: FLUTICASONE 50MCG/NASAL SPRAY 16GM BOTTLE. NS (08:48)
[2017-11-27] MEDS: MONTELUKAST SODIUM 10 MG TABLET. PO (08:49)
[2017-11-27] MEDS: LISINOPRIL 20 MG TABLET PO (08:49)
[2017-11-27] MEDS: amLODIPine BESYLATE 5 MG TABLET PO (08:49)
[2017-11-27] MEDS: CHOLECALCIFEROL (VITAMIN D3) 1,000 UNIT TABLET PO (08:49)
[2017-11-27] MEDS: CYANOCOBALAMIN (VITAMIN B-12) 1,000 MCG TABLET. PO (08:49)
== END 2017-11-27 15:16 | disposition left against medical advice (07) | DRG 391 ==
LOC: ER 12:25 → 5 SOUTH 16:23
DX: R19.7 Diarrhea, unspecified (principal); E43 Unspecified severe protein-calorie malnutrition; J96.10 Chronic respiratory failure, unspecified whether with hypoxia or hypercapnia; D51.9 Vitamin B12 deficiency anemia, unspecified; G20 Parkinson's disease; M48.04 Spinal stenosis, thoracic region; Z68.1 Body mass index [BMI] 19.9 or less, adult; J43.9 Emphysema, unspecified; D72.829 Elevated white blood cell count, unspecified; N18.2 Chronic kidney disease, stage 2 (mild); I12.9 Hypertensive chronic kidney disease with stage 1 through stage 4 chronic kidney disease, or unspecified chronic kidney disease; I73.9 Peripheral vascular disease, unspecified; K21.9 Gastro-esophageal reflux disease without esophagitis; G89.29 Other chronic pain; M48.061 Spinal stenosis, lumbar region without neurogenic claudication; M48.54XD Collapsed vertebra, not elsewhere classified, thoracic region, subsequent encounter for fracture with routine healing; M48.56XD Collapsed vertebra, not elsewhere classified, lumbar region, subsequent encounter for fracture with routine healing; M54.12 Radiculopathy, cervical region; Z87.01 Personal history of pneumonia (recurrent); Z91.14 Patient's other noncompliance with medication regimen
CPT/HCPCS: 36415; 74022; 74177; 80048; 80053; 80076; 80307; 81001; 82553; 83605; 83690; 83735; 84484; 85007; 85025; 85610; 85730; 87045; 87205; 87324; 93005; 94640; 94760; 96361; 96365; 99285; 99285-25; J0690; J7030; J7613; J7626

== ENCOUNTER 2017-12-19 18:56 | Inpatient (IN) | payer OTHER ==
[2017-12-19 19:32] LABS: ADD MAN DIFF? NO
[2017-12-19 19:37] LABS: BASO # 0.1 x10^3/uL (0.0-0.2); BASO % 1 % (0-3); EOS # 0.7 x10^3/uL (0.0-0.7); EOS % 9 % (0-3); HEMATOCRIT 36.6 % (39.0-53.0); HEMOGLOBIN 12.5 g/dL (13.0-17.5); LYMPH # 1.7 x10^3/uL (1.0-4.8); LYMPH % 20 % (24-48); MEAN CORPUSCULAR HEMOGLOBIN 29 pg (25-35); MEAN CORPUSCULAR HGB CONC 34 g/dL (31-37); MEAN CORPUSCULAR VOLUME 85 fL (79-100); MONO # 0.8 x10^3/uL (0.0-1.1); MONO % 9 % (0-9); NEUT # 5.2 x10^3uL (1.8-7.7); NEUT % 61 % (31-73); PLATELET COUNT 242 x10^3/uL (140-400); RED BLOOD COUNT 4.31 x10^6/uL (4.30-5.70); RED CELL DISTRIBUTION WIDTH 16.4 % (11.5-14.5); WHITE BLOOD COUNT 8.5 x10^3/uL (4.0-11.0)
[2017-12-19 19:38] LABS: BILIRUBIN,URINE NEGATIVE (NEG); CLARITY,URINE CLEAR; COLOR,URINE YELLOW; GLUCOSE,URINE 100 mg/dL (NEG); NITRITE,URINE NEGATIVE (NEG); PROTEIN,URINE NEGATIVE (NEG-TRACE); UROBILINOGEN,URINE 0.2 mg/dL (0.2 mg/dL)
[2017-12-19 19:45] LABS: AMPHETAMINE/METHAMPHETAMINE NEG (NEG); BARBITURATES NEG (NEG); BENZODIAZEPINES NEG (NEG); CANNABINOIDS NEG (NEG); COCAINE NEG (NEG); ETHANOL, URINE NEG (NEG); METHADONE NEG (NEG); OPIATES NEG (NEG); PHENCYCLIDINE NEG (NEG)
[2017-12-19 19:46] LABS: BACTERIA,URINE 0 /HPF (0-FEW); HYALINE CASTS, URINE OCCASIONAL /HPF; INR 0.9 (0.8-1.1); RBC,URINE OCC /HPF (0-2); SQUAMOUS EPITHELIAL CELL,UR OCC /LPF; WBC,URINE OCC /HPF (0-4)
[2017-12-19 19:51] LABS: ANION GAP 8 (6-14); BLOOD UREA NITROGEN 29 mg/dL (8-26); CALCIUM 8.4 mg/dL (8.5-10.1); CARBON DIOXIDE 31 mmol/L (21-32); CHLORIDE 108 mmol/L (98-107); GFR 73.7; GLUCOSE 121 mg/dL (70-99); SODIUM 147 mmol/L (136-145)
[2017-12-19 19:57] LABS: ALBUMIN 3.4 g/dL (3.4-5.0); ALK PHOS 82 U/L (46-116); ALT (SGPT) 18 U/L (16-63); AST (SGOT) 20 U/L (15-37); DIRECT BILIRUBIN 0.1 mg/dL (0.0-0.2); MAGNESIUM 1.7 mg/dL (1.8-2.4); TOTAL BILIRUBIN 0.5 mg/dL (0.2-1.0); TOTAL PROTEIN 6.1 g/dL (6.4-8.2)
[2017-12-19 19:59] LABS: TROPONINI < 0.017 ng/mL (0.000-0.055)
[2017-12-19 20:06] LABS: NT-PRO BNP 185 pg/mL (0-124); THYROID STIM HORMONE (TSH) 4.198 uIU/mL (0.358-3.74)
[2017-12-19 20:06] LABS: CKMB MASS 1.3 ng/mL (0.0-3.6); CREATINE KINASE 66 U/L (39-308)
[2017-12-19] MEDS: ACETAMINOPHEN 325 MG TABLET. PO (21:16)
[2017-12-19] MEDS: IPRATRPIUM/ALBUTEROL 0.5/2.5MG 3 ML NEBU. NEB (22:07)
[2017-12-19] MEDS: ASPIRIN 325 MG TABLET PO (22:38)
[2017-12-19] MEDS: AZITHRMYCN 500MG IVPB FOR OMNI 250 ML IV (22:38)
[2017-12-19] MEDS: methylPREDNISolone SOD SUCC PF 125 MG/2 ML VIAL. IV (22:38)
[2017-12-19] MEDS: MORPHINE SULFATE 4 MG/ML DISP.SYRIN. IV (23:40)
[2017-12-19 23:50] LABS: LACTIC ACID 1.9 mmol/L (0.4-2.0)
[2017-12-20] MEDS: MORPHINE SULFATE 4 MG/ML DISP.SYRIN. IV ×4 (00:37→20:26)
[2017-12-20 00:59] LABS: TROPONINI < 0.017 ng/mL (0.000-0.055)
[2017-12-20 04:28] LABS: BASO % 0 % (0-3); EOS % 0 % (0-3); HEMATOCRIT 35.1 % (39.0-53.0); HEMOGLOBIN 11.7 g/dL (13.0-17.5); LYMPH # 0.4 x10^3/uL (1.0-4.8); LYMPH % 6 % (24-48); MEAN CORPUSCULAR HEMOGLOBIN 29 pg (25-35); MEAN CORPUSCULAR HGB CONC 33 g/dL (31-37); MEAN CORPUSCULAR VOLUME 85 fL (79-100); MONO # 0.1 x10^3/uL (0.0-1.1); MONO % 1 % (0-9); NEUT # 6.9 x10^3uL (1.8-7.7); NEUT % 93 % (31-73); PLATELET COUNT 221 x10^3/uL (140-400); RED BLOOD COUNT 4.11 x10^6/uL (4.30-5.70); RED CELL DISTRIBUTION WIDTH 16.1 % (11.5-14.5); WHITE BLOOD COUNT 7.4 x10^3/uL (4.0-11.0)
[2017-12-20 04:29] LABS: ADD MAN DIFF? YES
[2017-12-20 04:45] LABS: ANION GAP 7 (6-14); BLOOD UREA NITROGEN 27 mg/dL (8-26); CALCIUM 8.9 mg/dL (8.5-10.1); CARBON DIOXIDE 29 mmol/L (21-32); CHLORIDE 106 mmol/L (98-107); GFR 73.7; GLUCOSE 195 mg/dL (70-99); POTASSIUM 4.3 mmol/L (3.5-5.1); SODIUM 142 mmol/L (136-145)
[2017-12-20 04:57] LABS: TROPONINI < 0.017 ng/mL (0.000-0.055)
[2017-12-20] MEDS: IPRATRPIUM/ALBUTEROL 0.5/2.5MG 3 ML NEBU. NEB ×2 (09:12→12:00)
[2017-12-20] MEDS: ONDANSETRON PF 4 MG/2 ML VIAL. IV ×2 (09:17→18:25)
[2017-12-20] MEDS ORDERED: ACETAMINOPHEN 650 MG SUPP.RECT. PR (11:00)
[2017-12-20 11:14] LABS: % BANDS 4 % (0-9); % LYMPHS 2 % (24-48); % SEGS 94 % (35-66)
[2017-12-20 11:22] LABS: PLT ESTIMATE ADEQUATE (ADEQUATE)
[2017-12-20] MEDS ORDERED: ENOXAPARIN 40 MG/0.4 ML SYRINGE. SQ (14:45)
[2017-12-20] MEDS: FLUTICASONE 50MCG/NASAL SPRAY 16GM BOTTLE. NS (15:00)
[2017-12-20] MEDS: CYANOCOBALAMIN (VITAMIN B-12) 1,000 MCG TABLET. PO (15:32)
[2017-12-20] MEDS: ENOXAPARIN 40 MG/0.4 ML SYRINGE. SQ (15:32)
[2017-12-20] MEDS: LISINOPRIL 20 MG TABLET PO (15:32)
[2017-12-20] MEDS: CHOLECALCIFEROL (VITAMIN D3) 1,000 UNIT TABLET PO (15:32)
[2017-12-20] MEDS: PANTOPRAZOLE 40 MG TABLET.DR. PO (15:33)
[2017-12-20] MEDS: amLODIPine BESYLATE 5 MG TABLET PO (15:33)
[2017-12-20] MEDS: SERTRALINE 50 MG TABLET. PO (15:33)
[2017-12-20] MEDS: MONTELUKAST SODIUM 10 MG TABLET. PO (15:34)
[2017-12-20] MEDS: ALBUTEROL SULFATE 2.5 MG/3 ML NEBU. NEB ×2 (15:57→19:56)
[2017-12-20] MEDS: BUDESONIDE 0.5 MG/2 ML NEBU. NEB (19:56)
[2017-12-20] MEDS: DOCUSATE SODIUM 100 MG CAPSULE. PO (20:25)
[2017-12-20] MEDS: POLYETHYLENE GLYCOL 3350 17 GM PACKET. PO (20:25)
[2017-12-20] MEDS: ATORVASTATIN CALCIUM 40 MG TABLET. PO (20:25)
[2017-12-20] MEDS: CETIRIZINE HCL 10 MG TABLET. PO (20:25)
[2017-12-20] MEDS ORDERED: SIMVASTATIN 10 MG TABLET PO (21:00)
[2017-12-20] MEDS ORDERED: NON FORMULARY ITEM (Budesonide/Formoterol Fumarate (Symbicort 160-4.5 Mcg Inhaler) 2 PUFF) IH (21:00)
[2017-12-21] MEDS: MORPHINE SULFATE 4 MG/ML DISP.SYRIN. IV (03:34)
[2017-12-21 07:05] LABS: ADD MAN DIFF? NO
[2017-12-21 07:11] LABS: BASO # 0.1 x10^3/uL (0.0-0.2); BASO % 0 % (0-3); EOS # 0.1 x10^3/uL (0.0-0.7); EOS % 1 % (0-3); HEMATOCRIT 36.7 % (39.0-53.0); HEMOGLOBIN 12.2 g/dL (13.0-17.5); LYMPH # 1.7 x10^3/uL (1.0-4.8); LYMPH % 15 % (24-48); MEAN CORPUSCULAR HEMOGLOBIN 28 pg (25-35); MEAN CORPUSCULAR HGB CONC 33 g/dL (31-37); MEAN CORPUSCULAR VOLUME 85 fL (79-100); MONO # 0.9 x10^3/uL (0.0-1.1); MONO % 8 % (0-9); NEUT # 9.1 x10^3uL (1.8-7.7); NEUT % 77 % (31-73); PLATELET COUNT 233 x10^3/uL (140-400); RED BLOOD COUNT 4.33 x10^6/uL (4.30-5.70); RED CELL DISTRIBUTION WIDTH 16.4 % (11.5-14.5); WHITE BLOOD COUNT 11.9 x10^3/uL (4.0-11.0)
[2017-12-21 07:33] LABS: ANION GAP 6 (6-14); BLOOD UREA NITROGEN 22 mg/dL (8-26); CALCIUM 8.5 mg/dL (8.5-10.1); CARBON DIOXIDE 31 mmol/L (21-32); CHLORIDE 105 mmol/L (98-107); CHOLESTEROL 156 mg/dL (0-200); GFR 73.7; GLUCOSE 96 mg/dL (70-99); HDLC 71 mg/dL (40-60); LDLC 69 mg/dL (0-100); NON-HDL CHOLESTEROL 85 mg/dL (0-129); POTASSIUM 3.9 mmol/L (3.5-5.1); SODIUM 142 mmol/L (136-145); TRIGLYCERIDES 81 mg/dL (0-150); VLDLC 16 mg/dL (0-40)
[2017-12-21 07:34] LABS: CHOLESTEROL/HDL RATIO 2.2
[2017-12-21] MEDS: ALBUTEROL SULFATE 2.5 MG/3 ML NEBU. NEB ×2 (07:49→11:38)
[2017-12-21] MEDS: BUDESONIDE 0.5 MG/2 ML NEBU. NEB (07:49)
[2017-12-21 08:09] LABS: FREE T4 1.02 ng/dL (0.76-1.46)
[2017-12-21] MEDS: FLUTICASONE 50MCG/NASAL SPRAY 16GM BOTTLE. NS (09:00)
[2017-12-21] MEDS: DOCUSATE SODIUM 100 MG CAPSULE. PO (09:43)
[2017-12-21] MEDS: SERTRALINE 50 MG TABLET. PO (09:43)
[2017-12-21] MEDS: PANTOPRAZOLE 40 MG TABLET.DR. PO (09:43)
[2017-12-21] MEDS: ASPIRIN ENTERIC COATED 325 MG TABLET.DR. PO (09:44)
[2017-12-21] MEDS: CHOLECALCIFEROL (VITAMIN D3) 1,000 UNIT TABLET PO (09:44)
[2017-12-21] MEDS: amLODIPine BESYLATE 5 MG TABLET PO (09:44)
[2017-12-21] MEDS: CYANOCOBALAMIN (VITAMIN B-12) 1,000 MCG TABLET. PO (09:44)
[2017-12-21] MEDS: LISINOPRIL 20 MG TABLET PO (09:44)
[2017-12-21] MEDS: MONTELUKAST SODIUM 10 MG TABLET. PO (09:45)
[2017-12-21] MEDS: POLYETHYLENE GLYCOL 3350 17 GM PACKET. PO (09:45)
[2017-12-21] MEDS: ENOXAPARIN 40 MG/0.4 ML SYRINGE. SQ (12:00)
[2017-12-21] MEDS: ACETAMINOPHEN 325 MG TABLET. PO (13:23)
== END 2017-12-21 13:31 | disposition home or self-care (01) | DRG 65 ==
LOC: ER 18:56 → 6 SOUTH 21:15
DX: I63.9 Cerebral infarction, unspecified (principal); E44.0 Moderate protein-calorie malnutrition; G20 Parkinson's disease; M48.56XA Collapsed vertebra, not elsewhere classified, lumbar region, initial encounter for fracture; M48.04 Spinal stenosis, thoracic region; Z68.1 Body mass index [BMI] 19.9 or less, adult; J43.9 Emphysema, unspecified; D64.9 Anemia, unspecified; N18.2 Chronic kidney disease, stage 2 (mild); D64.89 Other specified anemias; E53.8 Deficiency of other specified B group vitamins; I73.9 Peripheral vascular disease, unspecified; G83.24 Monoplegia of upper limb affecting left nondominant side; F17.210 Nicotine dependence, cigarettes, uncomplicated; G89.29 Other chronic pain; M47.892 Other spondylosis, cervical region; I65.23 Occlusion and stenosis of bilateral carotid arteries; I12.9 Hypertensive chronic kidney disease with stage 1 through stage 4 chronic kidney disease, or unspecified chronic kidney disease; K21.9 Gastro-esophageal reflux disease without esophagitis; M25.78 Osteophyte, vertebrae; Z79.51 Long term (current) use of inhaled steroids; Z91.19 Patient's noncompliance with other medical treatment and regimen; Z79.899 Other long term (current) drug therapy; Z87.01 Personal history of pneumonia (recurrent); Z87.440 Personal history of urinary (tract) infections; Z71.89 Other specified counseling
CPT/HCPCS: 36415; 70450; 70551; 71045; 72141; 80048; 80061; 80076; 80307; 81001; 82553; 83605; 83735; 83880; 84439; 84443; 84481; 84484; 85007; 85025; 85610; 92526-GN; 92610-GN; 93005; 93306; 93880; 94640; 96365; 96375; 97162-GP; 97166-GO; 99285-25; J0456; J1650; J2270; J2405; J2930; J7613; J7620; J7626

== ENCOUNTER 2017-12-24 16:16 | Emergency (ER) | payer OTHER ==
[2017-12-24] MEDS: oxyCODONE/APAP 5/325 1 TAB TABLET PO (17:04)
== END 2017-12-24 18:00 | disposition home or self-care (01) ==
LOC: ER 16:16
DX: G89.29 Other chronic pain (principal); M25.551 Pain in right hip; J44.9 Chronic obstructive pulmonary disease, unspecified; G20 Parkinson's disease
CPT/HCPCS: 99283

== ENCOUNTER 2018-01-02 14:44 | Emergency (ER) | payer OTHER ==
[2018-01-02 15:19] LABS: ADD MAN DIFF? NO
[2018-01-02] MEDS: IV NORMAL SALINE 1000ML BAG 1,000 ML IV (15:19)
[2018-01-02 15:22] LABS: BASO # 0.1 x10^3/uL (0.0-0.2); BASO % 1 % (0-3); EOS # 0.1 x10^3/uL (0.0-0.7); EOS % 1 % (0-3); HEMATOCRIT 36.9 % (39.0-53.0); HEMOGLOBIN 12.4 g/dL (13.0-17.5); LYMPH # 1.3 x10^3/uL (1.0-4.8); LYMPH % 12 % (24-48); MEAN CORPUSCULAR HEMOGLOBIN 29 pg (25-35); MEAN CORPUSCULAR HGB CONC 34 g/dL (31-37); MEAN CORPUSCULAR VOLUME 85 fL (79-100); MONO % 9 % (0-9); NEUT # 8.1 x10^3uL (1.8-7.7); NEUT % 77 % (31-73); PLATELET COUNT 272 x10^3/uL (140-400); RED BLOOD COUNT 4.33 x10^6/uL (4.30-5.70); RED CELL DISTRIBUTION WIDTH 16.6 % (11.5-14.5); WHITE BLOOD COUNT 10.6 x10^3/uL (4.0-11.0)
[2018-01-02 15:23] LABS: BILIRUBIN,URINE MODERATE (NEG); CLARITY,URINE CLEAR; COLOR,URINE YELLOW; GLUCOSE,URINE NEGATIVE (NEG); NITRITE,URINE NEGATIVE (NEG); PH,URINE 5.5; PROTEIN,URINE NEGATIVE (NEG-TRACE)
[2018-01-02 15:32] LABS: ANION GAP 8 (6-14); BACTERIA,URINE 0 /HPF (0-FEW); BLOOD UREA NITROGEN 32 mg/dL (8-26); BUN/CREATININE RATIO 23 (6-20); CARBON DIOXIDE 27 mmol/L (21-32); CHLORIDE 108 mmol/L (98-107); CREATININE 1.4 mg/dL (0.7-1.3); GLUCOSE 100 mg/dL (70-99); HYALINE CASTS, URINE MANY /HPF; POTASSIUM 3.9 mmol/L (3.5-5.1); RBC,URINE 0 /HPF (0-2); SODIUM 143 mmol/L (136-145); WBC,URINE 0 /HPF (0-4)
[2018-01-02 15:38] LABS: ALBUMIN 3.4 g/dL (3.4-5.0); ALBUMIN/GLOBULIN RATIO 1.3 (1.0-1.7); ALK PHOS 68 U/L (46-116); ALT (SGPT) 14 U/L (16-63); AST (SGOT) 17 U/L (15-37); LIPASE 114 U/L (73-393); TOTAL BILIRUBIN 0.5 mg/dL (0.2-1.0)
== END 2018-01-02 16:24 | disposition home or self-care (01) ==
LOC: ER 14:44
DX: R32 Unspecified urinary incontinence (principal); G89.29 Other chronic pain; G20 Parkinson's disease; J44.9 Chronic obstructive pulmonary disease, unspecified
CPT/HCPCS: 36415; 80053; 81001; 83690; 85025; 99284; J7030

== ENCOUNTER 2018-01-02 21:12 | Emergency (ER) | payer OTHER ==
[2018-01-03] MEDS: ACETAMINOPHEN/CODEINE 300/30MG TABLET. PO (00:26)
== END 2018-01-03 01:19 | disposition home or self-care (01) ==
LOC: ER 01-03 01:19
DX: N39.498 Other specified urinary incontinence (principal); G89.29 Other chronic pain; G20 Parkinson's disease; J44.9 Chronic obstructive pulmonary disease, unspecified
CPT/HCPCS: 99283